=== PATIENT | female | born 1945 | race Caucasian/White ===

== ENCOUNTER 2017-04-21 22:10 | Observation (INO) ==
[2017-04-21 22:55] LABS: Basophils % 0.3 %; Eosinophils # 0.1 K/mcL (0.0-0.6); Eosinophils % 0.7 %; Hematocrit 38.2 % (35.3-44.9); Hemoglobin 13.3 g/dL (11.5-15.4); Immature Granulocytes % 0.5 % (0-4); Immature Platelets 3.1 % (1.1-6.1); Lymphocytes # 1.7 K/mcL (0.6-4.6); Lymphocytes % 16.1 %; Mean Corpuscular HGB Conc 34.8 g/dL (31.6-35.5); Mean Corpuscular Hemoglobin 33.8 pg (28.0-33.3); Mean Corpuscular Volume 97.2 fL (83.0-100.0); Monocytes # 0.3 K/mcL (0.0-1.3); Monocytes % 3.1 %; Neutrophils # 8.5 K/mcL (1.6-8.9); Platelet Count 193 K/mcL (140-400); Red Blood Count 3.93 M/mcL (3.82-4.97); Red Cell Distribution Width 14.8 % (11.5-14.5); Segmented Neutrophils % 79.3 %
[2017-04-21 23:01] LABS: Prothrombin Time 10.8 Seconds (9.4-12.1)
[2017-04-21 23:04] LABS: Activated Partial Thrombo Time 30.6 Seconds (26.0-36.0)
[2017-04-21 23:06] LABS: BUN/Creatinine Ratio 16 (6-26); Blood Urea Nitrogen 14 mg/dL (7-20); Carbon Dioxide 23 mEq/L (19-29); Chloride 110 mEq/L (98-109); Glucose 91 mg/dL (70-99); Osmolality,Calculated 294 (280-300); Potassium 3.7 mEq/L (3.5-4.5); Sodium 142 mEq/L (136-145); eGFR For African Americans > 60 (> 60); eGFR For Non-African Americans > 60 (> 60)
--- NOTE | 2017-04-21 23:20 | Emergency Department Note ---
Disposition Clinical Impression: Chest pain Qualifiers: Chest pain type: unspecified Qualified Code(s): R07.9 - Chest pain, unspecified Disposition: Admitted As Inpatient Condition: Undetermined Time of Disposition: 00:27 Chest Pain HPI - General Chief Complaint: ED Chest Pain Stated Complaint: chest pressure Time Seen by Provider: 04/21/17 22:19 Source: patient, EMS Mode of arrival: ambulatory Limitations: no limitations Vital Signs Reviewed: Yes Nursing Notes Reviewed: Yes - History of Present Illness HPI Narrative: 71-year-old female with extensive history of cardiac disease, hypertension, hyperlipidemia, diabetes, arrives [facility] emergency department with complaint of chest pressure that started over the course of the past 24-48 hours. The patient states she has associated dyspnea as well. The patient denies any radiation. The patient states that she her chest pain is starting to improve at this time. She denies any other complaints. She is mildly hypertensive with a systolic blood pressure in the 180s upon arrival to the room. Workup here in the emergency department so for dentures no acute findings. The patient does have a history of quadruple bypass back in 2000. Denies any other recent history of cardiac workup. The patient states she has been noncompliant with her medications recently. She denies any other complaints at this time. Pt complaint: chest pain Onset (ago): day(s) (1-2) Duration: intermittent Onset: during rest, during exertion Pain Location: substernal Severity: moderate Severity scale (1-10): 8 Quality: tightness Pain Radiation: none Improves with: nothing Worsens with: nothing Associated symptoms: Reports: dyspnea Treatments prior to arrival chest pain: none - Related Data On Oral Contraceptives: No Home Medications Medication Instructions Recorded Confirmed Atorvastatin [Lipitor] 40 mg PO HS 10/19/15 11/09/15 Clopidogrel [Plavix] 75 mg PO DAILY 10/19/15 11/09/15 DULoxetine [Cymbalta] 30 mg PO BID 10/19/15 11/09/15 Insulin Human Regular [HumuLIN R] 32 unit SQ BID 10/19/15 11/09/15 Lisinopril [Zestril] 5 mg PO DAILY 10/19/15 11/09/15 Metoprolol XL (24 HR) Succ [Toprol 50 mg PO DAILY 10/19/15 11/09/15 Xl] Oxycodone HCl [Oxaydo] 5 mg PO TID PRN 10/19/15 11/09/15 Ranitidine HCl [Zantac] 150 mg PO BID 10/19/15 11/09/15 diazePAM [Valium] 5 mg PO TID PRN 10/19/15 11/09/15 Cetirizine HCl [Zyrtec] 10 mg PO DAILY PRN 11/09/15 11/09/15 Levothyroxine [Synthroid] 25 mcg PO 0630 11/09/15 11/09/15 Previous Rx's Medication Instructions Recorded Ciprofloxacin/Dex *EAR* Susp 4 drop RIGHT EAR BID #1 bottle 05/06/16 [Ciprodex *EAR* Susp] Ondansetron HCl [Zofran] 4 mg PO Q4H PRN #7 tablet 05/06/16 Allergies Allergy/AdvReac Type Severity Reaction Status Date / Time acetaminophen [From Percocet] Allergy Rash Verified 11/09/15 07:08 codeine Allergy Rash Verified 11/09/15 06:42 fluticasone furoate Allergy Rash Verified 11/09/15 07:08 [From Breo Ellipta] morphine Allergy Difficulty Verified 11/09/15 06:42 Breathing Oxycodone [From Percocet] Allergy Rash Verified 11/09/15 07:08 vilanterol Allergy Rash Verified 11/09/15 07:08 [From Breo Ellipta] All systems ED: reviewed and negative except as stated. Constitutional: Denies: fever, chills, weakness, weight change Eyes: Denies: eye pain, eye discharge, vision change ENT ED: Denies: ear pain, throat pain, dental pain, hearing loss, epistaxis, congestion, dysphagia Cardiovascular: Reports: chest pain, dyspnea on exertion. Denies: palpitations , edema, syncope Respiratory: Reports: dyspnea. Denies: cough, wheezes, hemoptysis, stridor Gastrointestinal: Denies: abdominal pain, nausea, vomiting, diarrhea, constipation, hematemesis, melena, hematochezia Musculoskeletal: Denies: back pain, neck pain, arthralgia, myalgia Integumentary: Denies: rash, abrasion, lesions Neurological: Denies: headache, weakness, numbness, paresthesias, confusion, abnormal gait, vertigo Chest Pain PMH - Past Medical History Medical history: Reports: coronary artery disease, diabetes, fibromyalgia, GERD , hyperlipidemia, hypertension, myocardial infarction, other Surgical history: Reports: angioplasty/stent, cholecystectomy, coronary bypass ( CABG), GALLITO/BSO Psychiatric history: Reports: depression - Social History Smoking Status: Current every day smoker Alcohol use: Reports: none Drug use: Reports: none Physical Exam - General Limitations: no limitations General appearance: alert, in no apparent distress - Head Head exam: atraumatic, normocephalic, normal inspection - Eye Eye exam: Present: normal appearance, PERRL, EOMI - ENT ENT exam: normal exam, normal oropharynx, mucous membranes moist - Neck Neck exam: Present: normal inspection, full ROM, trachea midline - Chest Chest inspection: Present: normal inspection, symmetric chest wall rise - Respiratory Respiratory exam: Present: normal lung sounds bilaterally - Cardiovascular Cardiovascular exam: Present: regular rate, normal rhythm, normal heart sounds - Abdominal Exam Abdominal exam: Present: soft, Non-Tender. Absent: tenderness, distention, guarding, rebound, rigidity - Extremities Exam Extremities exam: Present: normal inspection, full ROM. Absent: tenderness, pedal edema - Neurological Exam Neurological exam: Present: alert, oriented X3 - Skin Skin exam: Present: warm, dry, intact, normal color Course Vital Signs Temperature 97.5 F L 04/21/17 22:11 Pulse Rate 53 04/21/17 22:11 Respiratory Rate 20 04/21/17 22:11 Blood Pressure 160/105 04/21/17 22:11 O2 Sat by Pulse Oximetry 100 04/21/17 22:11 Temperature 97.5 F L 04/21/17 22:11 Pulse Rate 58 04/22/17 00:00 Respiratory Rate 20 04/22/17 01:17 Blood Pressure 148/67 04/22/17 01:17 O2 Sat by Pulse Oximetry 99 04/22/17 00:00 Oxygen Delivery Oxygen Delivery Nasal Cannula Chest Pain - MDM Narrative Medical decision making narrative: Patient was noted to have mild lateral ST depression on EKG with negative workup otherwise. The patient's symptoms were relieved with nitroglycerin. We will admit the patient to the hospitalist, accepted by Dr. Figueroa. - Lab Data Lab results reviewed: Yes I reviewed the patient's lab results. Result diagrams: 04/21/17 22:41 04/21/17 22:41 Lab Results 04/21/17 04/21/17 04/21/17 Range/Units 22:41 22:41 22:41 WBC 10.8 (4.3-11.1) K/mcL RBC 3.93 (3.82-4.97) M/mcL Hgb 13.3 (11.5-15.4) g/dL Hct 38.2 (35.3-44.9) % MCV 97.2 (83.0-100.0) fL MCH 33.8 H (28.0-33.3) pg MCHC 34.8 (31.6-35.5) g/dL RDW 14.8 H (11.5-14.5) % Plt Count 193 (140-400) K/mcL MPV 10.0 (9.4-12.4) fL Immature Gran % 0.5 (0-4) % Seg Neutrophils % 79.3 % Lymphocytes % 16.1 % Monocytes % 3.1 % Eosinophils % 0.7 % Basophils % 0.3 % Neutrophils # 8.5 (1.6-8.9) K/mcL Lymphocytes # 1.7 (0.6-4.6) K/mcL Monocytes # 0.3 (0.0-1.3) K/mcL Eosinophils # 0.1 (0.0-0.6) K/mcL Basophils # 0.0 (0.0-0.2) K/mcL Immature Plt Fraction 3.1 (1.1-6.1) % PT 10.8 (9.4-12.1) Seconds INR 1.0 APTT 30.6 (26.0-36.0) Seconds Sodium (136-145) mEq/L Potassium (3.5-4.5) mEq/L Chloride (98-109) mEq/L Carbon Dioxide (19-29) mEq/L BUN (7-20) mg/dL Creatinine (0.57-1.11) mg/dL Est GFR ( Amer) (> 60) Est GFR (Non-Af Amer) (> 60) BUN/Creatinine Ratio (6-26) Glucose (70-99) mg/dL Calculated Osmolality (280-300) Calcium (8.6-10.8) mg/dL Troponin I (0-0.03) ng/mL B-Natriuretic Peptide 284 H (0-100) pg/mL 04/21/17 04/21/17 Range/Units 22:41 22:41 WBC (4.3-11.1) K/mcL RBC (3.82-4.97) M/mcL Hgb (11.5-15.4) g/dL Hct (35.3-44.9) % MCV (83.0-100.0) fL MCH (28.0-33.3) pg MCHC (31.6-35.5) g/dL RDW (11.5-14.5) % Plt Count (140-400) K/mcL MPV (9.4-12.4) fL Immature Gran % (0-4) % Seg Neutrophils % % Lymphocytes % % Monocytes % % Eosinophils % % Basophils % % Neutrophils # (1.6-8.9) K/mcL Lymphocytes # (0.6-4.6) K/mcL Monocytes # (0.0-1.3) K/mcL Eosinophils # (0.0-0.6) K/mcL Basophils # (0.0-0.2) K/mcL Immature Plt Fraction (1.1-6.1) % PT (9.4-12.1) Seconds INR APTT (26.0-36.0) Seconds Sodium 142 (136-145) mEq/L Potassium 3.7 (3.5-4.5) mEq/L Chloride 110 H (98-109) mEq/L Carbon Dioxide 23 (19-29) mEq/L BUN 14 (7-20) mg/dL Creatinine 0.90 (0.57-1.11) mg/dL Est GFR ( Amer) > 60 (> 60) Est GFR (Non-Af Amer) > 60 (> 60) BUN/Creatinine Ratio 16 (6-26) Glucose 91 (70-99) mg/dL Calculated Osmolality 294 (280-300) Calcium 10.0 (8.6-10.8) mg/dL Troponin I 0.00 (0-0.03) ng/mL B-Natriuretic Peptide (0-100) pg/mL - Radiology Data Radiology results reviewed: Yes I reviewed the patient's radiology results. - EKG Data EKG attestation: Yes I reviewed and interpreted this EKG. EKG results narrative: Heart rate 61 bpm. FL 132 ms. QTc 440 ms. Normal axis. Normal sinus rhythm. Numerous PVCs noted no ST elevation noted foot T waves noted in V1, V2, V3, V4. Nonspecific ST changes otherwise noted from EKG from 11/07/2015. Attestation Statement - Attestation Attestation: I, Raffy Jones MD, personally evaluated this patient and discussed their management with the resident physician. I reviewed the resident's note and agree with the documented findings, medical decision making, and plan of care. 71-year-old female presents to the emergency department with a complaint of substernal chest pain for 1 day prior to arrival. Some shortness of breath with the chest pain. No radiation of the pain. Also some diaphoresis. On examination patient is a well-developed well-nourished well-appearing elderly female in no acute distress. She is alert and oriented 3. There is no cyanosis or diaphoresis. Chest is nontender to palpation. Breath sounds are decreased but equal bilaterally with no rales or wheezes noted. Heart regular rate and rhythm. Abdomen is soft and nontender with normal bowel sounds. Labs reviewed. Troponin normal. Chest x-ray negative. EKG does show some mild ST depression in V4 and V5. There is also some anterolateral T-wave flattening. The hospitalist, Dr. Figueroa, was consulted and accepted admission of the patient.
[2017-04-21] MEDS: Nitroglycerin 0.4 MG TAB.SUBL SL PRN (23:53)
[2017-04-22] MEDS: Nitroglycerin 0.4 MG TAB.SUBL SL PRN (02:51)
[2017-04-22] MEDS ORDERED: Melatonin 3 MG TABLET PO PRN (03:01)
--- NOTE | 2017-04-22 04:35 | Internal Med History&Physical ---
<Lyndon Hill - Last Filed: 04/22/17 05:56> Date of Encounter: 04/22/17 Time of Encounter: 04:30 Assessment and Plan (1) Chest pain Current visit: Yes Status: Acute Patient presents the emergency department with descriptions of substernal, tightening chest pain that radiates to her jaw. She states this occurred when she was going to the bathroom this evening. She states the chest pain was improved with nitroglycerin. EKG was negative for ischemic changes and first troponin was negative. Given patient history of coronary artery disease, concern for ACS is present. Patient also describes having multiple stressors in her life currently with known history of depression, possible anxiety is contributing to chest pain. Patient has also stopped taking all her medications except insulin for the past 1+ months. Patient is allergic to morphine and codeine, such as pain control with nitroglycerin We will continue to trend troponins Obtain echocardiogram Supple oxygen Continue telemetry Continuous pulse oximetry NPO until ACS was ruled out Qualifiers: Chest pain type: unspecified Qualified Code(s): R07.9 - Chest pain, unspecified (2) Coronary artery disease Current visit: Yes Status: Acute Patient has known history of coronary artery disease having undergone triple bypass in 2000. She states that she has not had a roller man for some time due to her previous roller man leaving. She reports she has not had a catheterization or stress test since 2000. Patient reports she is not taking any medications, except her insulin, and one month. Plan as above Qualifiers: Coronary Disease-Associated Artery/Lesion type: bypass graft [place] vs. transplanted heart: [place] heart Associated angina: angina presence unspecified Qualified Code(s): I25.810 - Atherosclerosis of coronary artery bypass graft(s) without angina pectoris (3) Diabetes mellitus Current visit: Yes Status: Acute Patient has history of diabetes type 2 currently on 32 units she will 1 twice a day We will start before meals at bedtime glucose monitoring Start low-dose sliding scale insulin Qualifiers: Diabetes mellitus type: type 2 Diabetes mellitus complication status: with unspecified complications Diabetes mellitus skilled nursing insulin use: with skilled nursing use Qualified Code(s): E11.8 - Type 2 diabetes mellitus with unspecified complications; Z79.4 - MCC (current) use of insulin (4) DVT prophylaxis Current visit: Yes Status: Acute 5000 units heparin subcutaneous twice a day Internal Medicine - H&P: HPI Chief complaint: Chest Pain Admitted From: Home Plans for Post Hospital Care: Home History of present illness: Ms. Avendano is a 71 year old female with prior medical history of coronary artery disease (status post CABG in 2000) and diabetes who presents to [facility] because of the onset of chest pain. She states this occurred last night and was described as a tight feeling in the center of her chest. She reports as occurred while she was going to the bathroom and that the discomfort radiated into her neck. She reports mild diaphoresis and shortness of breath accompanying this incident. She states this feels like angina she has had in the past, though more severe. No anything that made the discomfort better was nitroglycerin. She denied nausea with this. His feet with her, she also admits that she has had a number of life stressors at the moment. 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 She also describes a family history significant for mental disorder, as she has depression herself. She has not taken any of her home medications, with the exception of her insulin, and the last 4-6 weeks. Past Med Surg Social Fam HX - Past Medical History Medical history: coronary artery disease, diabetes, fibromyalgia, GERD, hyperlipidemia, hypertension, malignancy, myocardial infarction Psychiatric history: depression - Past Surgical History Surgical History: angioplasty/stent, cholecystectomy, coronary bypass (CABG), LE stent (s), LE vascular intervention - Social History Smoking Status: Current every day smoker Packs per day: 1/2 Smokeless Tobacco Status: No Alcohol use: none Drug use: none Internal Medicine - H&P: Meds Atorvastatin [Lipitor] 40 mg PO HS 10/19/15 [History] Clopidogrel [Plavix] 75 mg PO DAILY 10/19/15 [History] DULoxetine [Cymbalta] 30 mg PO BID 10/19/15 [History] Insulin Human Regular [HumuLIN R] 32 unit SQ BID 10/19/15 [History] Lisinopril [Zestril] 5 mg PO DAILY 10/19/15 [History] Metoprolol XL (24 HR) Succ [Toprol Xl] 50 mg PO DAILY 10/19/15 [History] Oxycodone HCl [Oxaydo] 5 mg PO TID PRN 10/19/15 [History] Ranitidine HCl [Zantac] 150 mg PO BID 10/19/15 [History] diazePAM [Valium] 5 mg PO TID PRN 10/19/15 [History] Cetirizine HCl [Zyrtec] 10 mg PO DAILY PRN 11/09/15 [History] Levothyroxine [Synthroid] 25 mcg PO 0630 11/09/15 [History] Ciprofloxacin/Dex *EAR* Susp [Ciprodex *EAR* Susp] 4 drop RIGHT EAR BID #1 bottle 05/06/16 [Rx] Ondansetron HCl [Zofran] 4 mg PO Q4H PRN #7 tablet 05/06/16 [Rx] 3 Allergy/AdvReac Type Severity Reaction Status Date / Time acetaminophen [From Percocet] Allergy Rash Verified 11/09/15 07:08 codeine Allergy Rash Verified 11/09/15 06:42 fluticasone furoate Allergy Rash Verified 11/09/15 07:08 [From Breo Ellipta] morphine Allergy Difficulty Verified 11/09/15 06:42 Breathing Oxycodone [From Percocet] Allergy Rash Verified 11/09/15 07:08 vilanterol Allergy Rash Verified 11/09/15 07:08 [From Breo Ellipta] Review of systems: Gen: Denies fever, denies chills, denies weakness, denies fatigue, reports diaphoresis CV: Reports chest pain as per HPI, denies exertional chest pain or dyspnea, denies palpitations Resp: Reports shortness of breath, denies dyspnea, denies pleuritic pain, denies coughing GI: Denies nausea, denies vomiting, denies abdominal pain, denies constipation, denies diarrhea Neuro: Reports headache, denies confusion : Denies flank pain, denies dysuria, denies hematuria - Constitutional Vitals: Temp Pulse Resp BP Pulse Ox 97.7 F 48 16 183/110 100 04/22/17 02:07 04/22/17 02:07 04/22/17 02:07 04/22/17 02:07 04/22/17 02:07 Exam: General: Cooperative, pleasant, no acute distress, alert and oriented 3, answers questions appropriately HEENT: Normocephalic, atraumatic, neck supple, trachea midline Respiratory: No accessory muscle usage, clear to auscultation bilaterally, no wheezes/rhonchi/rales appreciated Cardiovascular: Regular rate and rhythm, S1 and S2 present, no murmurs/rubs/ gallops/clicks appreciated GI/abdominal: Nondistended, nontender, soft, normal bowel sounds, no peritoneal signs Extremities: No calf tenderness, no pedal edema appreciated, warm, lower extremity pulses palpable and symmetrical Neurological: Alert and oriented 3, no facial droop, no focal deficits Skin: Dry, intact, normal color Internal Med - H&P Results - Labs CBC & Chem 7: 04/21/17 22:41 04/21/17 22:41 <BriCarlos kent W - Last Filed: 04/22/17 06:46> Date of Encounter: 04/22/17 Internal Medicine - H&P: HPI History of present illness: Ms. Avendano is a 71 year old female All Systems PM: A 10-system review of systems was performed and is negative for pertinent findings except as documented above in the HPI. - Constitutional Vitals: Temp Pulse Resp BP Pulse Ox 97.9 F 53 16 148/66 98 04/22/17 05:01 04/22/17 05:01 04/22/17 05:01 04/22/17 05:01 04/22/17 05:01 Internal Med - H&P Results - Labs CBC & Chem 7: 04/22/17 04:17 04/22/17 04:17 Labs: Short CBC 04/22/17 Range/Units 04:17 WBC 10.5 (4.3-11.1) K/mcL Hgb 13.0 (11.5-15.4) g/dL Hct 37.1 (35.3-44.9) % Plt Count 182 (140-400) K/mcL Neutrophils # 6.8 (1.6-8.9) K/mcL BMP 04/22/17 04:17 Sodium 140 Potassium 3.8 Chloride 110 H Carbon Dioxide 24 BUN 14 Creatinine 0.82 Glucose 66 L Calcium 9.8 Cardiac Enzymes 04/22/17 Range/Units 04:17 Troponin I 0.02 (0-0.03) ng/mL - Attending Attestation Seen/examined/supervised MDM. 71W with CAD/CABG, PAD, IDDM, HTN self- discontinued all her medications except insulin due to fatigue and has presented with angina pectoris. EKG shows TWI in lateral leads, unchanged from prior. MPI in 11/07 was negative for perfusion defects, EF 70%. TTE in 2015 showed EF 65%, with mild diastolic dysfunction. --Serial troponin/EKG, r/o ACS. Unlikely to benefit from repeat stress test at this time. Resume aspirin, statin , beta gloria. Start ImDur. If symptoms improve, follow up with cardiology as OP.
[2017-04-22] MEDS ORDERED: Dextrose Gel 15 GM PO PRN ×2 (05:28)
[2017-04-22] MEDS ORDERED: D5% in Water 1,000 ML IVC PRN (05:28)
[2017-04-22] MEDS ORDERED: Ondansetron 4 MG/2 ML VIAL IVP PRN (05:28)
[2017-04-22] MEDS ORDERED: *HR* Dextrose 50 % in Water (Syg) 50 ML SYRINGE IVP PRN (05:28)
[2017-04-22] MEDS ORDERED: *HR* Morphine 2 MG/ML SYRINGE IVP PRN (05:28)
[2017-04-22] MEDS ORDERED: Naloxone 0.4 MG/ML INJ IVP PRN (05:28)
[2017-04-22] MEDS ORDERED: *HR* Heparin 5,000 UNIT/ML VIAL SQ SCH (06:00)
[2017-04-22 06:08] LABS: BUN/Creatinine Ratio 17 (6-26); Blood Urea Nitrogen 14 mg/dL (7-20); Calcium 9.8 mg/dL (8.6-10.8); Carbon Dioxide 24 mEq/L (19-29); Chloride 110 mEq/L (98-109); Chol/HDL Ratio 4.8 (0-4.9); Cholesterol 158 mg/dL (< 200); Glucose 66 mg/dL (70-99); HDL Cholesterol 33 mg/dL (40-59); LDL Cholesterol,Calculated 97 mg/dL (0-99); Magnesium 1.9 mg/dL (1.6-2.6); Osmolality,Calculated 289 (280-300); Phosphorous 3.1 mg/dL (2.3-4.7); Potassium 3.8 mEq/L (3.5-4.5); Sodium 140 mEq/L (136-145); Triglycerides 139 mg/dL (< 150); eGFR For African Americans > 60 (> 60); eGFR For Non-African Americans > 60 (> 60)
[2017-04-22 06:09] LABS: Basophils % 0.4 %; Eosinophils # 0.1 K/mcL (0.0-0.6); Eosinophils % 0.9 %; Hematocrit 37.1 % (35.3-44.9); Immature Granulocytes % 0.4 % (0-4); Lymphocytes # 3.3 K/mcL (0.6-4.6); Lymphocytes % 31.1 %; Mean Corpuscular Hemoglobin 33.9 pg (28.0-33.3); Mean Corpuscular Volume 96.6 fL (83.0-100.0); Mean Platelet Volume 10.3 fL (9.4-12.4); Monocytes # 0.3 K/mcL (0.0-1.3); Neutrophils # 6.8 K/mcL (1.6-8.9); Platelet Count 182 K/mcL (140-400); Red Blood Count 3.84 M/mcL (3.82-4.97); Red Cell Distribution Width 14.9 % (11.5-14.5); Segmented Neutrophils % 64.2 %
[2017-04-22] MEDS: Insulin LISPRO 300 UNITS/3 ML VIAL SQ SCH ×2 (06:25→11:45)
[2017-04-22 06:28] LABS: Thyroid Stimulating Hormone 4.518 mcIU/mL (0.350-4.840)
[2017-04-22] MEDS ORDERED: Pantoprazole 40 MG VIAL IVP SCH (06:30)
[2017-04-22] MEDS ORDERED: Nicotine 14 MG PATCH.TD24 TD SCH (09:00)
[2017-04-22] MEDS ORDERED: Isosorbide MONOnitrate (24 HR) 30 MG TAB.ER.24H PO SCH (09:00)
[2017-04-22 11:35] VITALS: BP 128/57
--- NOTE | 2017-04-22 12:56 | Discharge Summary ---
Date of Encounter: 04/22/17 Time of Encounter: 12:53 - Discharge Diagnosis (1) Chest pain Priority: Primary Status: Acute Qualifiers: Chest pain type: unspecified Qualified Code(s): R07.9 - Chest pain, unspecified (2) Coronary artery disease Priority: Secondary Status: Acute Qualifiers: Coronary Disease-Associated Artery/Lesion type: bypass graft [place] vs. 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 Isosorbide MONOnitrate (24 HR) [Imdur] 30 mg PO DAILY #30 Home Medications: Atorvastatin [Lipitor] 40 mg PO HS 10/19/15 [History] Clopidogrel [Plavix] 75 mg PO DAILY 10/19/15 [History] DULoxetine [Cymbalta] 30 mg PO BID 10/19/15 [History] Lisinopril [Zestril] 5 mg PO DAILY 10/19/15 [History] Metoprolol XL (24 HR) Succ [Toprol Xl] 50 mg PO DAILY 10/19/15 [History] Oxycodone HCl [Oxaydo] 5 mg PO TID PRN 10/19/15 [History] Ranitidine HCl [Zantac] 150 mg PO BID 10/19/15 [History] diazePAM [Valium] 5 mg PO TID PRN 10/19/15 [History] Aspirin [Lo-Dose Aspirin EC] 81 mg PO DAILY #30 tablet. 04/22/17 [Rx] Insulin Glargine,Hum.rec.anlog [Lantus Solostar] 15 unit SQ QAM 04/22/17 [ History] Insulin Glargine,Hum.rec.anlog [Lantus Solostar] 36 unit SQ QPM 04/22/17 [ History] Isosorbide MONOnitrate (24 HR) [Imdur] 30 mg PO DAILY #30 04/22/17 [Rx] Levothyroxine [Synthroid] 50 mcg PO DAILY 04/22/17 [History] Pregabalin [Lyrica] 50 mg PO BID 04/22/17 [History] Allergies/Adverse Reactions: 3 Allergy/AdvReac Type Severity Reaction Status Date / Time acetaminophen [From Percocet] Allergy Rash Verified 11/09/15 07:08 codeine Allergy Rash Verified 11/09/15 06:42 fluticasone furoate Allergy Rash Verified 11/09/15 07:08 [From Breo Ellipta] morphine Allergy Difficulty Verified 11/09/15 06:42 Breathing Oxycodone [From Percocet] Allergy Rash Verified 11/09/15 07:08 vilanterol Allergy Rash Verified 11/09/15 07:08 [From Breo Ellipta] Date of admission: 04/22/17 00:39 Primary care physician: Steve Becker MD Consults: 04/22/17 02:28 Consult to Pastoral Services [CONS] Routine Comment: Consult to Dye Automation Operator [CONS] Routine Reason for SW Consult: Patient has financial concerns about medical matters 04/22/17 05:32 Consult to Nurse Navigator [CONS] Routine Comment: - Patient Status Disposition: Home, Self-Care Condition: Good Overall status at discharge: patient is back to baseline - Discharge Instructions Follow Up With: Steve Becker MD [Primary Care Provider] - Additional Instructions: Follow-up with primary care physician within the next 7 days. Start Imdur, aspirin. Continue Plavix, metoprolol and Lipitor. Monitor glucose closely at home - Diet and Activity Activity: increase activity as tolerated Diet: diabetic diet Hospital course: Ms. Avendano is a 71 year old female with prior medical history of coronary artery disease (status post CABG in 2000 and stents), labial cancer with surgical remova, hypertension, hyperlipidemia, fibromyalgia, depression and diabetes insulin-dependent who presented to [facility] because of the onset of chest pain. She stated this occurred last night and was described as a tight feeling in the center of her chest. She reported mild diaphoresis and shortness of breath accompanying this incident. The only thing that made the discomfort better was nitroglycerin. She denied nausea with this. Complained a number of life stressors at the moment. 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 Did not take her medications for a while. Troponins were negative and EKG did not show ischemic changes. Glucose was 66 but improved with orange juice. Feels better and prefers to be discharged. - Time Spent with Patient Total time spent providing and/or coordinating discharge services: Greater than 30 minutes (36 min) - Constitutional Vitals: Temp Pulse Resp BP Pulse Ox 98.1 F 58 17 128/57 97 04/22/17 11:00 04/22/17 11:11 04/22/17 11:00 04/22/17 11:00 04/22/17 11:00 - Head Head exam: Present: atraumatic, normocephalic - Eye Eye exam: Present: PERRL, conjuntiva pink, sclera anicteric Pupils: Present: PERRL - Neck Neck exam general surgery: Present: supple, trachea midline. Absent: lymphadenopathy - Respiratory Respiratory exam: Present: CTAB. Absent: accessory muscle use, rales, rhonchi, wheezes - Cardiovascular Cardiovascular exam: Present: RRR, +S1, +S2. Absent: diastolic murmur, gallop, rubs, systolic murmur - GI/Abdominal GI/Abdominal exam: Present: normal bowel sounds, soft, no peritoneal signs. Absent: distended, tenderness - Extremities Exam Extremities exam: Present: warm, radial pulses palpable and symmetrical. Absent : calf tenderness, cyanotic, pedal edema - Neurological Exam Neurological exam: Present: CN II-XII intact, oriented X3, no focal deficits. Absent: pronater drift, facial droop, speech deficit - Skin Skin exam: Present: dry, intact
--- NOTE | 2017-04-22 16:34 | Electrocardiograph Report ---
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
--- NOTE | 2017-04-22 16:41 | Electrocardiograph Report ---
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
[2017-04-22] MEDS ORDERED: Insulin LISPRO 300 UNITS/3 ML VIAL SQ SCH (21:00)
== END 2017-04-22 14:16 | disposition home or self-care (01) ==
LOC: EMEROO 22:10 → 2NNU 22:10
PROVIDERS: ADMIT Internal Medicine; ATTEND Internal Medicine

== ENCOUNTER 2018-08-08 15:16 | Inpatient (IN) ==
[2018-08-08] MEDS ORDERED: *HR* FentaNYL (PF) 100 MCG/2 ML VIAL IVP ONE (15:48)
[2018-08-08] MEDS ORDERED: Aspirin 81 MG TAB.CHEW PO STA (15:49)
--- NOTE | 2018-08-08 16:00 | Emergency Department Note ---
Disposition Clinical Impression: Pulmonary embolus, right Disposition: Admitted As Inpatient Condition: Good Time of Disposition: 20:18 General Adult HPI - General Stated complaint: Chest Pain Time Seen by Provider: 08/08/18 15:17 Source: EMS Limitations: no limitations Nursing Notes Reviewed: Yes Vital Signs Reviewed: Yes - History of Present Illness HPI Narrative: 73-year-old female presents emergency department with concern for severe, sharp, right lower chest pain. Patient reports that it started yesterday evening. Patient states that she has never felt this way before. Does report history of smoking as well as peripheral artery disease. Patient denies any nausea, vomiting, fever, chills, does report cough, but states that this is chronic. Denies any sputum production or hemoptysis. Denies any history of blood clots. Denies any leg swelling. Pain Scale: 10 - Related Data Home Medications Medication Instructions Recorded Confirmed RX: Oxycodone HCl [Oxaydo] 5 mg PO BID PRN 10/19/15 08/09/18 RX: Betamethasone Dipropionate 1 appl TP BID 08/09/18 08/09/18 RX: Levothyroxine [Synthroid] 75 mcg PO 0630 08/09/18 08/09/18 RX: traZODone [TraZODone] 50 mg PO HS PRN 08/09/18 08/09/18 Previous Rx's Medication Instructions Recorded RX: Isosorbide MONOnitrate (24 HR) 30 mg PO DAILY #30 04/22/17 [Imdur] Apixaban [Eliquis] 5 mg PO AD 30 Days #74 tablet 08/09/18 Allergies Allergy/AdvReac Type Severity Reaction Status Date / Time codeine Allergy Rash Verified 08/09/18 14:06 fluticasone furoate Allergy Rash Verified 08/09/18 14:06 [From Breo Ellipta] morphine Allergy Difficulty Verified 08/09/18 14:06 Breathing Oxycodone [From Percocet] Allergy Rash Verified 08/09/18 14:06 vilanterol Allergy Rash Verified 08/09/18 14:06 [From Breo Ellipta] All systems ED: reviewed and negative except as stated. Review of Systems: As Per HPI Constitutional: Denies: fever Cardiovascular: Reports: chest pain. Denies: palpitations Respiratory: Reports: cough. Denies: dyspnea Gastrointestinal: Denies: abdominal pain, nausea, vomiting Genitourinary: Denies: urgency, dysuria, frequency Musculoskeletal: Denies: back pain Past Medical History - Past Medical History Medical history: Reports: coronary artery disease, diabetes, fibromyalgia, GERD, hyperlipidemia, hypertension, malignancy, myocardial infarction Surgical history: Reports: angioplasty/stent, cholecystectomy, coronary bypass (CABG), LE stent (s), LE vascular intervention Psychiatric history: Reports: depression - Social History Smoking Status: Current every day smoker Smokeless Tobacco Status: No Alcohol use: Reports: none Drug use: Reports: none Physical Exam - General Limitations: no limitations General appearance: alert, lethargic, other (Patient appears very uncomfortable, screaming in pain) - Head Head exam: normocephalic - Eye Eye exam: Present: EOMI - ENT ENT exam: mucous membranes moist - Neck Neck exam: Present: trachea midline - Chest Chest inspection: Present: symmetric chest wall rise, tenderness (Right-sided chest wall tenderness extremely tender to palpation) - Respiratory Respiratory exam: Present: normal lung sounds bilaterally. Absent: respiratory distress, accessory muscle use - Cardiovascular Cardiovascular exam: Present: regular rate, normal rhythm, normal heart sounds - Abdominal Exam Abdominal exam: Present: soft, Non-Tender. Absent: distention, guarding, rebound, rigidity Course Vital Signs Temperature 99.2 F 08/08/18 15:18 Pulse Rate 88 08/08/18 15:18 Respiratory Rate 22 08/08/18 15:18 Blood Pressure 143/118 08/08/18 15:18 O2 Sat by Pulse Oximetry 100 08/08/18 15:18 Temperature 98.2 F 08/10/18 07:00 Pulse Rate 65 08/10/18 07:00 Respiratory Rate 15 08/10/18 07:00 Blood Pressure 165/71 08/10/18 07:00 O2 Sat by Pulse Oximetry 93 08/10/18 07:00 Oxygen Delivery Oxygen Delivery Room Air Medical Decision Making - [facility] Narrative Medical decision making narrative: 71-year-old female presented to emergency department with concern for right-side d chest wall pain is reproducible upon palpation. Patient initially very comfortable in the room on physical exam. Patient was given pain medication. Chest x-ray did not reveal any evidence of acute cardiopulmonary abnormality. However, there was evidence of a small granuloma was calcified. We will obtain a d-dimer as patient's pain was pleuritic in nature and she was not PERC negative. D-dimer is elevated at 3805. We will obtain CT angiogram of the chest and revealed pulmonary embolus within the distal aspect of the right main pulmonary artery per radiology. Extended into the right middle lobe and right lower lobe branches as well. There was also evidence of right lower lobe and ri ght middle lobe pulmonary opacities which most likely represent pulmonary infarcts. Patient currently not hypoxic, tachycardic, hypotensive.No evidence of right heart strain at this time as patient's troponin was negative. Patient's creatinine here in the emergency department was 1.51. This is mildly elevated from previous. We admitted to hospitalist. Patient has required multiple doses of pain medication here in the emergency department she was very uncomfortable. I discussed results with patient bedside. They agreed with plan. Patient admitted the hospital. We have started heparin. Chest X-Ray 08/08/18 15:23 IMPRESSION: No acute findings. D/ / 08/08/2018 15:58:51 Vinayak Suazo MD / Shanda Marshall Interpreting Provider: Vinayak Suazo MD Chest CTA 08/08/18 16:37 IMPRESSION: Pulmonary embolus within the distal aspect of the right main pulmonary artery extending into multiple right middle lobe and right lower lobe branches. Peripherally based right middle lobe and right lower lobe pulmonary opacities are suspected to represent pulmonary infarcts. Critical results were called by Dr. Vinayak Suazo MD to Dr. Pierre Vazquez On 08/08/2018 at 18:37. D/ / 08/08/2018 18:40:32 Vinayak Sauzo MD / todd Interpreting Provider: Vinayak Suazo MD - Lab Data Result diagrams: 08/10/18 03:19 08/10/18 07:55 Lab Results 08/08/18 08/08/18 08/08/18 Range/Units 15:48 15:48 15:48 WBC 15.5 H (4.3-11.1) K/mcL RBC 4.35 (3.82-4.97) M/mcL Hgb 14.5 (11.5-15.4) g/dL Hct 42.3 (35.3-44.9) % MCV 97.2 (83.0-100.0) fL MCH 33.3 (28.0-33.3) pg MCHC 34.3 (31.6-35.5) g/dL RDW 15.4 H (11.5-14.5) % Plt Count 186 (140-400) K/mcL MPV 10.3 (9.4-12.4) fL Immature Gran % 0.8 (0-4) % Seg Neutrophils % 77.2 % Lymphocytes % 16.6 % Monocytes % 4.3 % Eosinophils % 0.8 % Basophils % 0.3 % Neutrophils # 12.0 H (1.6-8.9) K/mcL Lymphocytes # 2.6 (0.6-4.6) K/mcL Monocytes # 0.7 (0.0-1.3) K/mcL Eosinophils # 0.1 (0.0-0.6) K/mcL Basophils # 0.1 (0.0-0.2) K/mcL PT 12.0 (9.4-12.1) Seconds INR 1.1 APTT 30.0 (26.0-36.0) Seconds D-Dimer 3805 H (0-500) ng/mLFEU Heparin Anti-Xa, Unfract (0.30-0.70) IU/mL Sodium 140 (136-145) mEq/L Potassium 4.1 (3.5-5.1) mEq/L Chloride 105 (98-107) mEq/L Carbon Dioxide 25 (23-29) mEq/L BUN 28 H (8-23) mg/dL Creatinine 1.51 H (0.60-1.20) mg/dL Est GFR ( Amer) 41 L (> 60) Est GFR (Non-Af Amer) 34 L (> 60) BUN/Creatinine Ratio 19 (6-26) Glucose 114 H (70-105) mg/dL POC Glucose (70-99) mg/dL Calculated Osmolality 296 (280-300) Calcium 9.1 (8.6-10.3) mg/dL Troponin I < 0.03 (< 0.04) ng/mL B-Natriuretic Peptide (Less than 100) pg/mL 08/08/18 08/08/18 08/08/18 Range/Units 15:48 19:02 21:41 WBC (4.3-11.1) K/mcL RBC (3.82-4.97) M/mcL Hgb (11.5-15.4) g/dL Hct (35.3-44.9) % MCV (83.0-100.0) fL MCH (28.0-33.3) pg MCHC (31.6-35.5) g/dL RDW (11.5-14.5) % Plt Count (140-400) K/mcL MPV (9.4-12.4) fL Immature Gran % (0-4) % Seg Neutrophils % % Lymphocytes % % Monocytes % % Eosinophils % % Basophils % % Neutrophils # (1.6-8.9) K/mcL Lymphocytes # (0.6-4.6) K/mcL Monocytes # (0.0-1.3) K/mcL Eosinophils # (0.0-0.6) K/mcL Basophils # (0.0-0.2) K/mcL PT 12.4 H (9.4-12.1) Seconds INR 1.1 APTT (26.0-36.0) Seconds D-Dimer (0-500) ng/mLFEU Heparin Anti-Xa, Unfract 0.01 L (0.30-0.70) IU/mL Sodium (136-145) mEq/L Potassium (3.5-5.1) mEq/L Chloride (98-107) mEq/L Carbon Dioxide (23-29) mEq/L BUN (8-23) mg/dL Creatinine (0.60-1.20) mg/dL Est GFR ( Amer) (> 60) Est GFR (Non-Af Amer) (> 60) BUN/Creatinine Ratio (6-26) Glucose (70-105) mg/dL POC Glucose 89 (70-99) mg/dL Calculated Osmolality (280-300) Calcium (8.6-10.3) mg/dL Troponin I (< 0.04) ng/mL B-Natriuretic Peptide 82 (Less than 100) pg/mL 08/09/18 08/09/18 08/09/18 Range/Units 03:21 03:21 03:21 WBC 13.4 H (4.3-11.1) K/mcL RBC 4.05 (3.82-4.97) M/mcL Hgb 13.4 (11.5-15.4) g/dL Hct 39.8 (35.3-44.9) % MCV 98.3 (83.0-100.0) fL MCH 33.1 (28.0-33.3) pg MCHC 33.7 (31.6-35.5) g/dL RDW 15.3 H (11.5-14.5) % Plt Count 162 (140-400) K/mcL MPV 10.6 (9.4-12.4) fL Immature Gran % (0-4) % Seg Neutrophils % % Lymphocytes % % Monocytes % % Eosinophils % % Basophils % % Neutrophils # (1.6-8.9) K/mcL Lymphocytes # (0.6-4.6) K/mcL Monocytes # (0.0-1.3) K/mcL Eosinophils # (0.0-0.6) K/mcL Basophils # (0.0-0.2) K/mcL PT (9.4-12.1) Seconds INR APTT (26.0-36.0) Seconds D-Dimer (0-500) ng/mLFEU Heparin Anti-Xa, Unfract 0.42 (0.30-0.70) IU/mL Sodium 139 (136-145) mEq/L Potassium 4.6 (3.5-5.1) mEq/L Chloride 109 H (98-107) mEq/L Carbon Dioxide 24 (23-29) mEq/L BUN 23 (8-23) mg/dL Creatinine 1.29 H (0.60-1.20) mg/dL Est GFR ( Amer) 49 L (> 60) Est GFR (Non-Af Amer) 41 L (> 60) BUN/Creatinine Ratio 18 (6-26) Glucose 108 H (70-105) mg/dL POC Glucose (70-99) mg/dL Calculated Osmolality 292 (280-300) Calcium 8.4 L (8.6-10.3) mg/dL Troponin I (< 0.04) ng/mL B-Natriuretic Peptide (Less than 100) pg/mL 08/09/18 08/09/18 Range/Units 07:27 10:18 WBC (4.3-11.1) K/mcL RBC (3.82-4.97) M/mcL Hgb (11.5-15.4) g/dL Hct (35.3-44.9) % MCV (83.0-100.0) fL MCH (28.0-33.3) pg MCHC (31.6-35.5) g/dL RDW (11.5-14.5) % Plt Count (140-400) K/mcL MPV (9.4-12.4) fL Immature Gran % (0-4) % Seg Neutrophils % % Lymphocytes % % Monocytes % % Eosinophils % % Basophils % % Neutrophils # (1.6-8.9) K/mcL Lymphocytes # (0.6-4.6) K/mcL Monocytes # (0.0-1.3) K/mcL Eosinophils # (0.0-0.6) K/mcL Basophils # (0.0-0.2) K/mcL PT (9.4-12.1) Seconds INR APTT (26.0-36.0) Seconds D-Dimer (0-500) ng/mLFEU Heparin Anti-Xa, Unfract 0.28 L (0.30-0.70) IU/mL Sodium (136-145) mEq/L Potassium (3.5-5.1) mEq/L Chloride (98-107) mEq/L Carbon Dioxide (23-29) mEq/L BUN (8-23) mg/dL Creatinine (0.60-1.20) mg/dL Est GFR ( Amer) (> 60) Est GFR (Non-Af Amer) (> 60) BUN/Creatinine Ratio (6-26) Glucose (70-105) mg/dL POC Glucose 111 H (70-99) mg/dL Calculated Osmolality (280-300) Calcium (8.6-10.3) mg/dL Troponin I (< 0.04) ng/mL B-Natriuretic Peptide (Less than 100) pg/mL - EKG Data EKG #1 EKG attestation: Yes I reviewed and interpreted this EKG. EKG results narrative: 15:25 Heart rate 76 bpm, IL interval 130, QRS duration 92 ms, QT 391 ms, QTc 440 ms, normal axis. Sinus rhythm with ventricular 76 beats for minute. No evidence of any ischemic ST changes. Attestation Statement - Attestation Attestation: I, Mazin Fernandez, examined this patient and my medical decision-making was reviewed with the CORING MACHINE OPERATOR/PA/Advanced Practice Nurse/Resident Physician. I agree with the documented findings, disposition and treatment plan as described except to the extent set forth below. 73-year-old female presents emergency Department with concerns of acute onset right-sided chest pain. Patient states the pain started about 24 hours ago however it worsened this morning. She is currently writhing in the bed screami ng out in pain. She states pain is worse with deep breaths. EKG did not show evidence of STEMI or dysrhythmia. And was not significantly changed from the previous EKG. CTA of the chest showed PE which is consistent with the patient's symptoms. She will be started on heparin and admitted to the hospitalist for further care and evaluation. The high probability of a clinically significant, sudden or life threatening deterioration of the cardiovascular and respiratory system(s) required my full and direct attention, intervention and personal management. The aggregate critical care time was 35 minutes. This time is in addition to time spent performing reported procedures but includes the following: x Data Review and interpretation x Patient assessment and monitoring of vital signs x Documentation x Medication orders and management
[2018-08-08 16:03] LABS: Basophils # 0.1 K/mcL (0.0-0.2); Basophils % 0.3 %; Eosinophils # 0.1 K/mcL (0.0-0.6); Eosinophils % 0.8 %; Hematocrit 42.3 % (35.3-44.9); Hemoglobin 14.5 g/dL (11.5-15.4); Immature Granulocytes % 0.8 % (0-4); Lymphocytes # 2.6 K/mcL (0.6-4.6); Lymphocytes % 16.6 %; Mean Corpuscular HGB Conc 34.3 g/dL (31.6-35.5); Mean Corpuscular Hemoglobin 33.3 pg (28.0-33.3); Mean Corpuscular Volume 97.2 fL (83.0-100.0); Mean Platelet Volume 10.3 fL (9.4-12.4); Monocytes # 0.7 K/mcL (0.0-1.3); Monocytes % 4.3 %; Platelet Count 186 K/mcL (140-400); Red Blood Count 4.35 M/mcL (3.82-4.97); Red Cell Distribution Width 15.4 % (11.5-14.5); Segmented Neutrophils % 77.2 %
[2018-08-08 16:16] LABS: INR 1.1
[2018-08-08 16:26] LABS: BUN/Creatinine Ratio 19 (6-26); Blood Urea Nitrogen 28 mg/dL (8-23); Calcium 9.1 mg/dL (8.6-10.3); Carbon Dioxide 25 mEq/L (23-29); Chloride 105 mEq/L (98-107); Glucose 114 mg/dL (70-105); Osmolality,Calculated 296 (280-300); Potassium 4.1 mEq/L (3.5-5.1); Sodium 140 mEq/L (136-145); Troponin I < 0.03 ng/mL (< 0.04); eGFR For Non-African Americans 34 (> 60)
[2018-08-08] MEDS ORDERED: 0.9 % Sodium Chloride 1,000 ML IVC ONE (16:37)
[2018-08-08] MEDS ORDERED: Isovue-370 500 ML INFUS..BTL IV ONE (16:37)
[2018-08-08] MEDS ORDERED: *HR* HYDROmorphone (PF) 1 MG/ML SYRINGE IVP ONE (16:53)
[2018-08-08] MEDS ORDERED: *HR* Heparin 5,000 UNIT/ML VIAL IVP PRN ×2 (18:39)
[2018-08-08] MEDS ORDERED: *HR* Heparin 5,000 UNIT/ML VIAL IVP ONE (18:39)
[2018-08-08] MEDS ORDERED: Heparin 25,000 UNIT/500 ML D5W 25,000 UNIT/500 ML BAG IVC SCH (18:45)
[2018-08-08 19:34] LABS: Heparin anti-factor XA UFH 0.01 IU/mL (0.30-0.70); INR 1.1; Prothrombin Time 12.4 Seconds (9.4-12.1)
[2018-08-08] MEDS ORDERED: Ondansetron 4 MG/2 ML VIAL IVP ONE (22:45)
[2018-08-08] MEDS: OXYCODONE Oral CONC 10 MG/0.5 ML ORAL.SYG SL PRN (23:00)
[2018-08-08] MEDS ORDERED: Naloxone 0.4 MG/ML INJ IVP PRN (23:22)
[2018-08-08] MEDS ORDERED: D5% in Water 1,000 ML IVC PRN (23:23)
[2018-08-08] MEDS ORDERED: *HR* Dextrose 50 % in Water (Syg) 50 ML SYRINGE IVP PRN (23:23)
[2018-08-08] MEDS ORDERED: Dextrose Gel 15 GM/37.5 ML TUBE PO PRN ×2 (23:23)
--- NOTE | 2018-08-08 23:55 | Internal Med History&Physical ---
Date of Encounter: 08/08/18 Time of Encounter: 22:02 Internal Medicine - H&P: HPI Chief complaint: Right pulmonary embolism Admitted From: Emergency Dept Plans for Post Hospital Care: Home History of present illness: Ms. Avendano is a 73 year old female Patient presented to the emergency room with a 2 day history of sharp nonradiating right-sided chest pain and shortness of breath. She says that her symptoms gradually increased over the last few days and became severe enough that she came to the hospital for further evaluation. She has never had pain like this before. Emergency room patient's CBC showed a white count of 15.5, BMP showed creatinine of 1.51. D-dimer was elevated at 3805, troponin was undetectable and BMP was 82. CT angiogram showed pulmonary embolism within the distal aspect of the right main pulmonary artery extending into the multiple right middle lobe and right lower lobe branches. There was peripheral right middle lobe base and right lower lobe pulmonary opacities that were suspected to represent pulmonary infarcts. Chest x-ray showed no acute abnormalities. She was given 1 L of IV fluids, 324 mg aspirin a total of 50 g fentanyl as well as lidocaine patch. Heparin drip was started patient was sent to the medical floor for further evaluation. Upon my evaluation patient is still in intense pain, which comes and goes. She denies nausea, vomiting, fever and chills. She has never had a blood clot before but does have history of peripheral vascular disease. According to her medical chart she has multiple allergies to pain medication including morphine, oxycodone, codeine and acetaminophen. I discussed these with her and she denies anaphylaxis with these medicines but does get nauseated. She agreed to try oxycodone for her pain, and we will treat nausea with Zofran. Past Med Surg Social Fam HX - Past Medical History Medical history: coronary artery disease, diabetes, fibromyalgia, GERD, hyperlipidemia, hypertension, malignancy, myocardial infarction Psychiatric history: depression - Past Surgical History Surgical History: angioplasty/stent, cholecystectomy, coronary bypass (CABG), LE stent (s), LE vascular intervention Additional surgical history: NECK SURGERY. RIGHT EAR - Social History Smoking Status: Current every day smoker Smokeless Tobacco Status: No Alcohol use: none Drug use: none Internal Medicine - H&P: Meds Atorvastatin [Lipitor] 40 mg PO HS 10/19/15 [History] Clopidogrel [Plavix] 75 mg PO DAILY 10/19/15 [History] DULoxetine [Cymbalta] 30 mg PO BID 10/19/15 [History] Lisinopril [Zestril] 5 mg PO DAILY 10/19/15 [History] Metoprolol XL (24 HR) Succ [Toprol Xl] 50 mg PO DAILY 10/19/15 [History] Oxycodone HCl [Oxaydo] 5 mg PO TID PRN 10/19/15 [History] Ranitidine HCl [Zantac] 150 mg PO BID 10/19/15 [History] Aspirin [Lo-Dose Aspirin EC] 81 mg PO DAILY #30 tablet. 04/22/17 [Rx] Insulin Glargine,Hum.rec.anlog [Lantus Solostar] 15 unit SQ QAM 04/22/17 [History] Insulin Glargine,Hum.rec.anlog [Lantus Solostar] 36 unit SQ QPM 04/22/17 [History] Isosorbide MONOnitrate (24 HR) [Imdur] 30 mg PO DAILY #30 04/22/17 [Rx] Levothyroxine [Synthroid] 50 mcg PO DAILY 04/22/17 [History] Allergy/AdvReac Type Severity Reaction Status Date / Time acetaminophen [From Percocet] Allergy Rash Verified 11/09/15 07:08 codeine Allergy Rash Verified 11/09/15 06:42 fluticasone furoate Allergy Rash Verified 11/09/15 07:08 [From Breo Ellipta] morphine Allergy Difficulty Verified 11/09/15 06:42 Breathing Oxycodone [From Percocet] Allergy Rash Verified 11/09/15 07:08 vilanterol Allergy Rash Verified 11/09/15 07:08 [From Breo Ellipta] All Systems PM: A 10-system review of systems was performed and is negative for pertinent findings except as documented above in the HPI. - Constitutional Vitals: Temp Pulse Resp BP Pulse Ox 99.0 F 70 16 172/75 92 08/08/18 21:37 08/08/18 21:37 08/08/18 21:37 08/08/18 21:58 08/08/18 21:37 General appearance: Present: cooperative, mild distress, A&O X 3, pleasant, answers questions appropriately Exam: - - Head Head exam: Present: normal inspection - Eye Eye exam: Present: EOMI, normal appearance - Neck Neck exam general surgery: Absent: tenderness - Respiratory Respiratory exam: Present: chest wall tenderness, CTAB. Absent: rales, respiratory distress, rhonchi, wheezes Additional comments: Focal point of pain on the right side lower anterior chest - Cardiovascular Cardiovascular exam: Present: RRR. Absent: diastolic murmur, systolic murmur - GI/Abdominal GI/Abdominal exam: Present: normal bowel sounds, soft. Absent: tenderness - Extremities Exam Extremities exam: Present: warm, radial pulses palpable and symmetrical. Absent: calf tenderness, pedal edema, tenderness - Neurological Exam Neurological exam: Present: no focal deficits, strengths equal and symetr throughout. Absent: motor sensory deficit, facial droop, speech deficit - Skin Skin exam: Present: dry, normal color, warm Internal Med - H&P Results - Labs CBC & Chem 7: 08/08/18 15:48 08/08/18 15:48 Labs: Short CBC 08/08/18 Range/Units 15:48 WBC 15.5 H (4.3-11.1) K/mcL Hgb 14.5 (11.5-15.4) g/dL Hct 42.3 (35.3-44.9) % Plt Count 186 (140-400) K/mcL Neutrophils # 12.0 H (1.6-8.9) K/mcL BMP 08/08/18 15:48 Sodium 140 Potassium 4.1 Chloride 105 Carbon Dioxide 25 BUN 28 H Creatinine 1.51 H Glucose 114 H Calcium 9.1 Cardiac Enzymes 08/08/18 Range/Units 15:48 Troponin I < 0.03 (< 0.04) ng/mL - Impressions ITS Impressions Chest X-Ray 08/08/18 15:23 IMPRESSION: No acute findings. D/ / 08/08/2018 15:58:51 Vinayak Suazo MD / Shanda Marshall Interpreting Provider: Vinayak Suazo MD Chest CTA 08/08/18 16:37 IMPRESSION: Pulmonary embolus within the distal aspect of the right main pulmonary artery extending into multiple right middle lobe and right lower lobe branches. Peripherally based right middle lobe and right lower lobe pulmonary opacities are suspected to represent pulmonary infarcts. Critical results were called by Dr. Vinayak Suazo MD to Dr. Pierre Vazquez On 08/08/2018 at 18:37. D/ /08/2018 18:40:32 Vinayak Suazo MD / [email or web address] Interpreting Provider: Vinayak Suazo MD - Assessment and plan (1) Pulmonary embolus, right Current Visit: Yes Status: Acute Assessment and plan: Patient CTA showed right middle lobe and right lower lobe pulmonary embolisms with pulmonary infarctions in the peripheral bases. She was started on heparin drip in the emergency room. Continue heparin drip Oxycodone for pain control (2) Chest pain Current Visit: No Status: Acute Assessment and plan: Likely secondary to pulmonary embolism, patient's pain focal point located on the right side and is nonradiating. lidocaine patch given in the emergency room Oxycodone 10 mg every 6 hours as needed for pain Qualifiers: Chest pain type: unspecified Qualified Code(s): R07.9 - Chest pain, unspecified (3) Acute kidney injury Current Visit: Yes Status: Acute Assessment and plan: Elevated creatinine, patient has a history of chronic kidney disease stage III. Creatinine is elevated from baseline. She has been given 1 L of normal saline in the emergency room. Continue IV fluid hydration Recheck labs in the AM (4) Diabetes mellitus Current Visit: No Status: Acute Assessment and plan: Low dose sliding scale insulin as needed Monitor sugars with meals and at night Diabetic diet Qualifiers: Diabetes mellitus type: type 2 Diabetes mellitus longterm insulin use: with rn long term care use Diabetes mellitus complication status: with unspecified complications Qualified Code(s): E11.8 - Type 2 diabetes mellitus with unspecified complications; Z79.4 - care home (current) use of insulin (5) DVT prophylaxis Current Visit: No Status: Acute Assessment and plan: Heparin drip - Time Spent With Patient Total time spent is greater than 50% in coordination of care (as documented) at patient's floor/unit and/or counseling patient: Greater than 35 minutes
[2018-08-09] MEDS ORDERED: 0.9 % Sodium Chloride 1,000 ML IVC ONE (00:19)
[2018-08-09 03:34] LABS: Hematocrit 39.8 % (35.3-44.9); Hemoglobin 13.4 g/dL (11.5-15.4); Mean Corpuscular HGB Conc 33.7 g/dL (31.6-35.5); Mean Corpuscular Hemoglobin 33.1 pg (28.0-33.3); Mean Corpuscular Volume 98.3 fL (83.0-100.0); Mean Platelet Volume 10.6 fL (9.4-12.4); Platelet Count 162 K/mcL (140-400); Red Blood Count 4.05 M/mcL (3.82-4.97); Red Cell Distribution Width 15.3 % (11.5-14.5)
[2018-08-09 03:50] LABS: Calcium 8.4 mg/dL (8.6-10.3); Potassium 4.6 mEq/L (3.5-5.1)
[2018-08-09] MEDS: OXYCODONE Oral CONC 10 MG/0.5 ML ORAL.SYG SL PRN (05:30)
[2018-08-09] MEDS: Insulin LISPRO 300 UNITS/3 ML VIAL SQ SCH ×3 (08:49→17:52)
[2018-08-09] MEDS: Isosorbide MONOnitrate (24 HR) 30 MG TAB.ER.24H PO SCH (12:22)
[2018-08-09] MEDS: Apixaban 5 MG TABLET PO SCH ×2 (12:22→21:04)
[2018-08-09] MEDS ORDERED: Benzonatate 100 MG CAPSULE PO PRN (13:57)
--- NOTE | 2018-08-09 14:03 | Internal Med Progress Note ---
Hospitalist Progress Note - Encounter Date of Encounter: 08/09/18 Time of Encounter: 14:01 - Subjective Interval History: I have seen and evaluated the patient at bedside. patient reports significant pain in inspiration, which she rates 9/10, squeezing like. denies abdominal pain, nausea or vomiting. but reports feeling slightly lethargic. - Exam Vitals: Temp Pulse Resp BP Pulse Ox 98.9 F 77 18 143/100 73 08/09/18 12:11 08/09/18 12:11 08/09/18 12:11 08/09/18 12:11 08/09/18 12:11 Exam: Vitals: Reviewed. General: Alert and oriented x4. In mild to moderated distress due to pain with inspiration. Skin: Normal color, no rash, no lesions. HEENT: EOM, pupils equal, round and reactive. Cardiovascular: RRR, Normal S1 & S2, no rubs, murmurs or gallops. Lungs: CTA b/l, no wheezes or crackles. Abdomen: Soft, non-tender, no rigidity. Extremities: No deformity, no edema or tenderness, no joint swelling or clubbing. Neurological: Normal cognition and motor skills. Rest of the physical exam is non contributory - Assessment and Plan (1) Pulmonary embolus, right Current Visit: Yes Status: Acute Assessment and Plan: associated with significant pain with inspiration. incentive spirometry d/ oxyconde as patient has been getting lethargic with this medication will add [place] d/c heparin drip started on Apixaban 10mg/PO BID x7 days, follow by apixaban 5mg/PO BID patient educated about the importance of smoking cessation Limited TTE to evaluate for right heart strain duppler us of the lower extr r/o DVT (2) Leukocytosis Current Visit: Yes Status: Acute Assessment and Plan: most likely reactive due to pain secondary to Pulmonary infarct. (3) Acute kidney injury Current Visit: Yes Status: Acute Assessment and Plan: patient started on IV hydration. will re-assess kidney function in the morning. (4) Coronary artery disease Current Visit: No Status: Chronic Assessment and Plan: Hx of NSTEMI s/p HC and stents placement in [id number]. Will discontinue Clopidogrel, as patient has been started on Apixaban. and triple therapy would increase this patient bleeding risks. continue Aspirin 81mg/PO daily. (5) Hypothyroidism Current Visit: Yes Status: Chronic Assessment and Plan: Continue levothyroxine 75 mcg/PO daily, home dose. (6) Hypertension Current Visit: Yes Status: Chronic Assessment and Plan: BP sub-optimally controlled. Patient started on her home mediations. Isosorbide 30mg/PO daily. DVT Prophylaxis: Patient on an Oral anticoagulant. - Summary of Assessment and Plan Summary of Assessment and Plan: Patient to remain in the hospital due to severe chest pain. following a PE. Potential discharge tomorrow. - Time Spent with Patient Total time spent is greater than 50% in coordination of care (as documented) at patient's floor/unit and/or counseling patient: Greater than 35 minutes (40) Plan of Care Discussed with: patient (and the nurse.) Internal Medicine: Result - Labs CBC & Chem 7: 08/09/18 03:21 08/09/18 03:21 Labs: Short CBC 08/08/18 08/09/18 Range/Units 15:48 03:21 WBC 15.5 H 13.4 H (4.3-11.1) K/mcL Hgb 14.5 13.4 (11.5-15.4) g/dL Hct 42.3 39.8 (35.3-44.9) % Plt Count 186 162 (140-400) K/mcL Neutrophils # 12.0 H (1.6-8.9) K/mcL BMP 08/08/18 08/09/18 15:48 03:21 Sodium 140 139 Potassium 4.1 4.6 Chloride 105 109 H Carbon Dioxide 25 24 BUN 28 H 23 Creatinine 1.51 H 1.29 H Glucose 114 H 108 H Calcium 9.1 8.4 L Cardiac Enzymes 08/08/18 Range/Units 15:48 Troponin I < 0.03 (< 0.04) ng/mL - ABG Interpretation ABG results: PT/INR, D-dimer PT 12.4 Seconds (9.4-12.1) H 08/08/18 19:02 D-Dimer 3805 ng/mLFEU (0-500) H 08/08/18 15:48 - Impressions Impressions Chest X-Ray 08/08/18 15:23 IMPRESSION: No acute findings. D/ / 08/08/2018 15:58:51 Vinayak Suazo MD / Shanda Marshall Interpreting Provider: Vinayak Suazo MD Chest CTA 08/08/18 16:37 IMPRESSION: Pulmonary embolus within the distal aspect of the right main pulmonary artery extending into multiple right middle lobe and right lower lobe branches. Peripherally based right middle lobe and right lower lobe pulmonary opacities are suspected to represent pulmonary infarcts. Critical results were called by Dr. Vinayak Suazo MD to Dr. Pierre Vazquez On 08/08/2018 at 18:37. D/ / 08/08/2018 18:40:32 Vinayak Suazo MD / todd Interpreting Provider: Vinayak Suazo MD Consult Discharge Plan - Plan Prescriptions: Apixaban [Eliquis] 5 mg PO AD 30 Days #74 tablet __ (2) Leukocytosis Qualifiers: Leukocytosis type: unspecified Qualified Code(s): D72.829 - Elevated white blood cell count, unspecified (4) Coronary artery disease Qualifiers: Coronary Disease-Associated Artery/Lesion type: bypass graft [place] vs. transplanted heart: [place] heart Associated angina: angina presence unspecified Qualified Code(s): I25.810 - Atherosclerosis of coronary artery bypass graft(s) without angina pectoris (5) Hypothyroidism Qualifiers: Hypothyroidism type: unspecified Qualified Code(s): E03.9 - Hypothyroidism, unspecified (6) Hypertension Qualifiers: Hypertension type: unspecified Qualified Code(s): I10 - Essential (primary) hypertension
--- NOTE | 2018-08-09 15:30 | Electrocardiograph Report ---
[place] [id number] Test Date: 2018-08-08 Pat Name: Yasmine Avendano Department: [id number] Room: 2NE19 Gender: F Labels Molder: : 1945 Requested By: Pierre Vazquez Order Number: [id number] Reading MD: Johny Benites Measurements Intervals [place] Rate: 76 P: 73 CO: 130 QRS: 98 QRSD: 93 T: 90 QT: 391 QTc: 440 Interpretive Statements Sinus rhythm Right axis deviation Nonspecific T abnormalities, lateral leads Electronically Signed On 08-09-2018 15:28:44 EST by Johny Benites
[2018-08-09] MEDS ORDERED: Insulin LISPRO 300 UNITS/3 ML VIAL SQ SCH (21:00)
[2018-08-09] MEDS: *HR* HYDROcodone/Acet 5/325 mg TABLET PO PRN (21:22)
[2018-08-10 04:31] LABS: Basophils % 0.3 %; Eosinophils # 0.1 K/mcL (0.0-0.6); Eosinophils % 0.7 %; Hematocrit 32.3 % (35.3-44.9); Immature Granulocytes % 0.7 % (0-4); Lymphocytes # 2.2 K/mcL (0.6-4.6); Lymphocytes % 20.1 %; Mean Corpuscular Hemoglobin 33.5 pg (28.0-33.3); Mean Corpuscular Volume 95.8 fL (83.0-100.0); Mean Platelet Volume 10.8 fL (9.4-12.4); Monocytes # 0.6 K/mcL (0.0-1.3); Monocytes % 5.8 %; Neutrophils # 7.9 K/mcL (1.6-8.9); Platelet Count 155 K/mcL (140-400); Red Blood Count 3.37 M/mcL (3.82-4.97); Red Cell Distribution Width 14.7 % (11.5-14.5); Segmented Neutrophils % 72.4 %
[2018-08-10 04:45] LABS: Calcium 8.8 mg/dL (8.6-10.3); Magnesium 1.7 mg/dL (1.6-2.6); Phosphorous 2.9 mg/dL (2.7-4.5); Potassium 4.3 mEq/L (3.5-5.1)
[2018-08-10 04:48] LABS: Hemoglobin 11.3 g/dL (11.5-15.4)
[2018-08-10] MEDS: *HR* HYDROcodone/Acet 5/325 mg TABLET PO PRN ×2 (05:56→14:23)
[2018-08-10 07:28] VITALS: BP 165/71
[2018-08-10 08:38] LABS: Calcium 8.9 mg/dL (8.6-10.3); Potassium 4.5 mEq/L (3.5-5.1)
[2018-08-10] MEDS ORDERED: Aspirin Enteric Coated 81 MG Tablet PO SCH (09:00)
[2018-08-10] MEDS: Isosorbide MONOnitrate (24 HR) 30 MG TAB.ER.24H PO SCH (09:12)
[2018-08-10] MEDS: Apixaban 5 MG TABLET PO SCH (09:12)
[2018-08-10] MEDS: Insulin LISPRO 300 UNITS/3 ML VIAL SQ SCH ×2 (09:14→11:48)
--- NOTE | 2018-08-10 13:55 | Discharge Summary ---
- NOTES TO OUTPATIENT PROVIDER Notes to Outpatient Provider: none Date of Encounter: 08/10/18 Time of Encounter: 11:00 - Discharge Diagnosis (1) Coronary artery disease Priority: Primary Status: Chronic Qualifiers: Coronary Disease-Associated Artery/Lesion type: bypass graft [place] vs. transplanted heart: [place] heart Associated angina: angina presence unspecified Qualified Code(s): I25.810 - Atherosclerosis of coronary artery bypass graft(s) without angina pectoris (2) Pulmonary embolus, right Priority: Primary Status: Acute (3) Acute kidney injury Priority: Secondary Status: Acute (4) Leukocytosis Priority: Secondary Status: Acute Qualifiers: Leukocytosis type: unspecified Qualified Code(s): D72.829 - Elevated white blood cell count, unspecified (5) Hypothyroidism Priority: Secondary Status: Chronic Qualifiers: Hypothyroidism type: unspecified Qualified Code(s): E03.9 - Hypothyroidism, unspecified (6) Hypertension Priority: Secondary Status: Chronic Qualifiers: Hypertension type: unspecified Qualified Code(s): I10 - Essential (primary) hypertension Hospital course: Patient is a 73-year-old female with past medical history significant for coronary artery disease, diabetes, fibromyalgia, GERD, hyperlipidemia, hypertension, malignancy and myocardial infarction was admitted due to right- sided chest pain. Emergency room patient's CBC showed a white count of 15.5, BMP showed creatinine of 1.51. D-dimer was elevated at 3805, troponin was undetectable and BMP was 82. CT angiogram showed pulmonary embolism within the distal aspect of the right main pulmonary artery extending into the multiple right middle lobe and right lower lobe branches. Heparin drip was started patient was sent to the medical floor for further evaluation. During patients hospital stay echocardiogram did not show any right ventricular strain and patient was on room air. Patient was started on Eliquis and will be discharged to continue as an outpatient. - Time Spent with Patient Total time spent providing and/or coordinating discharge services: - Discharge Medications Home Medications: Oxycodone HCl [Oxaydo] 5 mg PO BID PRN 10/19/15 [History] Isosorbide MONOnitrate (24 HR) [Imdur] 30 mg PO DAILY #30 04/22/17 [Rx] Apixaban [Eliquis] 5 mg PO AD 30 Days #74 tablet 08/09/18 [Rx] Betamethasone Dipropionate 1 appl TP BID 08/09/18 [History] Levothyroxine [Synthroid] 75 mcg PO 0630 08/09/18 [History] traZODone [TraZODone] 50 mg PO HS PRN 08/09/18 [History] Allergies/Adverse Reactions: Allergy/AdvReac Type Severity Reaction Status Date / Time codeine Allergy Rash Verified 08/09/18 14:06 fluticasone furoate Allergy Rash Verified 08/09/18 14:06 [From Breo Ellipta] morphine Allergy Difficulty Verified 08/09/18 14:06 Breathing Oxycodone [From Percocet] Allergy Rash Verified 08/09/18 14:06 vilanterol Allergy Rash Verified 08/09/18 14:06 [From Breo Ellipta] Date of admission: 08/09/18 17:11 Primary care physician: Juaquin Lewis MD Consults: 08/08/18 22:57 Consult to Nutrition [CONS] Routine Comment: Consulting Provider: NUTRITION Reason for Dietary Consult: MST Score - Constitutional Vitals: Temp Pulse Resp BP Pulse Ox 98.2 F 65 15 165/71 93 08/10/18 07:00 08/10/18 07:00 08/10/18 07:00 08/10/18 07:00 08/10/18 07:00 General appearance: Present: cooperative, mild distress, A&O X 3, pleasant, answers questions appropriately Exam: Gen.: Nonacute distress, alert and oriented 3 Skin: Normal color - Patient Status Disposition: Home, Self-Care Condition: Good - Discharge Instructions Instructions: Apixaban (By mouth), Pulmonary Embolism (DC), Diabetes Mellitus Type 2 in Adults (DC) Follow Up With: Juaquin Lewis MD [Primary Care Provider] - 08/12/18 10:15 am (make sure you call the day before if you can not make this appointment) Forms: ED Satisfaction Letter
== END 2018-08-10 14:51 | disposition home or self-care (01) | DRG 176 ==
LOC: EMEROOARM 15:16 → 2NENU 15:16 → SUATTDRO 08-09 17:11
PROVIDERS: ADMIT Internal Medicine; ATTEND Hospitalist

== ENCOUNTER 2018-09-19 19:04 | Inpatient (IN) ==
--- NOTE | 2018-09-19 19:24 | Emergency Department Note ---
Disposition Clinical Impression: Left-sided weakness, Hyperglycemia Cerebrovascular accident Qualifiers: CVA mechanism: unspecified Qualified Code(s): I63.9 - Cerebral infarction, unspecified Disposition: Admitted As Inpatient Condition: Fair Referrals: NONE,PCP [Primary Care Provider] - Forms: ED Satisfaction Letter Time of Disposition: 20:11 Neuro HPI - General Chief Complaint: ED Neuro Symptoms/Deficit Stated Complaint: weakness Time Seen by Provider: 09/19/18 19:10 Source: patient, EMS Mode of arrival: EMS Limitations: no limitations Nursing Notes Reviewed: Yes Vital Signs Reviewed: Yes - History of Present Illness HPI Narrative: Patient arrives by EMS from home. She states she has experienced left upper extremity and left lower extremity weakness over the past 3 days. This is associated with dysarthria. She has had difficulty ambulating. She does complain of occasional pain to her distal left upper extremity. She is currently taking xarelto for a pulmonary embolus - Related Data Home Medications: Home Medications Medication Instructions Recorded Confirmed Oxycodone HCl [Oxaydo] 5 mg PO BID PRN 10/19/15 08/11/18 Betamethasone Dipropionate 1 appl TP BID PRN 08/09/18 08/11/18 Levothyroxine [Synthroid] 75 mcg PO 0630 08/09/18 08/11/18 traZODone [TraZODone] 50 mg PO HS PRN 08/09/18 08/11/18 Apixaban [Eliquis] 10 mg PO BID 08/11/18 08/11/18 Previous Rx's Medication Instructions Recorded Isosorbide MONOnitrate (24 HR) 30 mg PO DAILY #30 04/22/17 [Imdur] Allergies/Adverse Reactions: Allergies Allergy/AdvReac Type Severity Reaction Status Date / Time fluticasone furoate Allergy Rash Verified 08/09/18 14:06 [From Breo Ellipta] morphine Allergy Difficulty Verified 08/09/18 14:06 Breathing vilanterol Allergy Rash Verified 08/09/18 14:06 [From Breo Ellipta] All systems ED: reviewed and negative except as stated. Constitutional: Reports: weakness Eyes: Reports: as per HPI ENT ED: Reports: as per HPI Cardiovascular: Reports: as per HPI Respiratory: Reports: as per HPI Gastrointestinal: Reports: as per HPI Genitourinary: Reports: as per HPI Musculoskeletal: Reports: other (Left arm pain) Integumentary: Reports: as per HPI Neurological: Reports: weakness, abnormal gait, other (Dysarthria) Psychiatric: Reports: as per HPI Endocrine: Reports: as per HPI Hematological/Lymphatic: Reports: as per HPI Allergic/Immunologic: Reports: as per HPI Past Medical History - Past Medical History Medical history: Reports: coronary artery disease, diabetes, fibromyalgia, GERD, hyperlipidemia, hypertension, malignancy, myocardial infarction, pulmonary embolus Surgical history: Reports: angioplasty/stent, cholecystectomy, coronary bypass (CABG), orthopedic, other, LE stent (s), LE vascular intervention Psychiatric history: Reports: depression - Social History Smoking Status: Current every day smoker Smokeless Tobacco Status: No Alcohol use: Reports: none Drug use: Reports: none Physical Exam - General Limitations: no limitations General appearance: alert - Head Head exam: atraumatic - Eye Eye exam: Present: normal appearance, PERRL - ENT ENT exam: normal exam - Neck Neck exam: Present: normal inspection, full ROM - Chest Chest inspection: Present: normal inspection, symmetric chest wall rise - Respiratory Respiratory exam: Present: normal lung sounds bilaterally - Cardiovascular Cardiovascular exam: Present: regular rate, normal rhythm, normal heart sounds, systolic murmur - Abdominal Exam Abdominal exam: Present: soft, Non-Tender - Rectal Exam Rectal exam: Present: deferred - Extremities Exam Extremities exam: Present: normal inspection - Neurological Exam Neurological exam: Present: alert, oriented X3, CN II-XII intact, other (Mild dysarthria. Mild facial droop. 4/5 strength in the left upper and left lower extremity. 5 over 5 strength in the right upper and right lower extremity. No arm or leg drift. Gait and station not assessed) - Psychiatric Psychiatric exam: Present: normal affect, normal mood - Skin Skin exam: Present: warm, dry, intact Course Course Narrative: Patient presents with a three-day history of left-sided weakness. Concern for CVA. Workup initiated Vital Signs Temperature 98.2 F 09/19/18 19:11 Pulse Rate 73 09/19/18 19:11 Respiratory Rate 16 09/19/18 19:11 Blood Pressure 161/83 09/19/18 19:11 O2 Sat by Pulse Oximetry 95 09/19/18 19:11 Temperature 98.2 F 09/19/18 19:11 Pulse Rate 73 09/19/18 19:11 Respiratory Rate 16 09/19/18 19:11 Blood Pressure 161/83 09/19/18 19:11 O2 Sat by Pulse Oximetry 95 09/19/18 19:11 Oxygen Delivery Oxygen Delivery Room Air Neuro Symptoms/Deficit - Lab Data Lab results reviewed: Yes I reviewed the patient's lab results. Result diagrams: 09/19/18 19:13 09/19/18 19:13 Lab Results 09/19/18 09/19/18 09/19/18 Range/Units 19:13 19:13 19:13 WBC 10.7 (4.3-11.1) K/mcL RBC 4.52 (3.82-4.97) M/mcL Hgb 14.9 (11.5-15.4) g/dL Hct 42.5 (35.3-44.9) % MCV 94.0 (83.0-100.0) fL MCH 33.0 (28.0-33.3) pg MCHC 35.1 (31.6-35.5) g/dL RDW 13.4 (11.5-14.5) % Plt Count 190 (140-400) K/mcL MPV 10.3 (9.4-12.4) fL PT 12.0 (9.4-12.1) Seconds INR 1.1 Sodium 136 (136-145) mEq/L Potassium 4.4 (3.5-5.1) mEq/L Chloride 102 (98-107) mEq/L Carbon Dioxide 25 (23-29) mEq/L BUN 24 H (8-23) mg/dL Creatinine 1.29 H (0.60-1.20) mg/dL Est GFR ( Amer) 49 L (> 60) Est GFR (Non-Af Amer) 41 L (> 60) BUN/Creatinine Ratio 19 (6-26) Glucose 404 H (70-105) mg/dL Calculated Osmolality 303 H (280-300) Calcium 9.9 (8.6-10.3) mg/dL Total Bilirubin (0.3-1.0) mg/dL Direct Bilirubin (0.0-0.2) mg/dL Indirect Bilirubin (0.0-1.2) mg/dL AST (13-39) Units/L ALT (7-52) Units/L Alkaline Phosphatase (34-104) Units/L Troponin I < 0.03 (< 0.04) ng/mL Serum Total Protein (6.4-8.9) g/dL Albumin (3.5-5.7) g/dL Globulin (2.4-3.5) g/dL Albumin/Globulin Ratio (1.1-2.2) 09/19/18 Range/Units 19:14 WBC (4.3-11.1) K/mcL RBC (3.82-4.97) M/mcL Hgb (11.5-15.4) g/dL Hct (35.3-44.9) % MCV (83.0-100.0) fL MCH (28.0-33.3) pg MCHC (31.6-35.5) g/dL RDW (11.5-14.5) % Plt Count (140-400) K/mcL MPV (9.4-12.4) fL PT (9.4-12.1) Seconds INR Sodium (136-145) mEq/L Potassium (3.5-5.1) mEq/L Chloride (98-107) mEq/L Carbon Dioxide (23-29) mEq/L BUN (8-23) mg/dL Creatinine (0.60-1.20) mg/dL Est GFR ( Amer) (> 60) Est GFR (Non-Af Amer) (> 60) BUN/Creatinine Ratio (6-26) Glucose (70-105) mg/dL Calculated Osmolality (280-300) Calcium (8.6-10.3) mg/dL Total Bilirubin 0.6 (0.3-1.0) mg/dL Direct Bilirubin 0.1 (0.0-0.2) mg/dL Indirect Bilirubin 0.5 (0.0-1.2) mg/dL AST 12 L (13-39) Units/L ALT 7 (7-52) Units/L Alkaline Phosphatase 115 H (34-104) Units/L Troponin I (< 0.04) ng/mL Serum Total Protein 7.4 (6.4-8.9) g/dL Albumin 4.1 (3.5-5.7) g/dL Globulin 3.3 (2.4-3.5) g/dL Albumin/Globulin Ratio 1.2 (1.1-2.2) - Radiology Data Radiology results reviewed: Yes I reviewed the patient's radiology results. - EKG Data EKG attestation: Yes I reviewed and interpreted this EKG. EKG results narrative: Normal sinus rhythm rate 64 MI 131 QRS 97 QT/QTc 409/422. No acute ST segment elevation. Mild ST segment flattening in the lateral leads. Study compared to previous dated 08/11/18 TPA Checklist - LKW: 3-4.5 hrs Add. Warnings/Precautions Patient/family understanding: The patient/family members have been counseled and understood the risk, benefit, and alternatives of treatment.
[2018-09-19 19:42] LABS: Hematocrit 42.5 % (35.3-44.9); Hemoglobin 14.9 g/dL (11.5-15.4); Mean Corpuscular HGB Conc 35.1 g/dL (31.6-35.5); Mean Platelet Volume 10.3 fL (9.4-12.4); Platelet Count 190 K/mcL (140-400); Red Blood Count 4.52 M/mcL (3.82-4.97); Red Cell Distribution Width 13.4 % (11.5-14.5)
[2018-09-19 19:50] LABS: INR 1.1
[2018-09-19 20:02] LABS: Albumin 4.1 g/dL (3.5-5.7); Albumin/Globulin Ratio 1.2 (1.1-2.2); Bilirubin,Direct 0.1 mg/dL (0.0-0.2); Bilirubin,Indirect 0.5 mg/dL (0.0-1.2); Bilirubin,Total 0.6 mg/dL (0.3-1.0); Globulin 3.3 g/dL (2.4-3.5); Total Protein 7.4 g/dL (6.4-8.9)
[2018-09-19 20:04] LABS: BUN/Creatinine Ratio 19 (6-26); Blood Urea Nitrogen 24 mg/dL (8-23); Calcium 9.9 mg/dL (8.6-10.3); Carbon Dioxide 25 mEq/L (23-29); Chloride 102 mEq/L (98-107); Glucose 404 mg/dL (70-105); Osmolality,Calculated 303 (280-300); Potassium 4.4 mEq/L (3.5-5.1); Sodium 136 mEq/L (136-145); eGFR For Non-African Americans 41 (> 60)
[2018-09-19 20:05] LABS: Troponin I < 0.03 ng/mL (< 0.04)
[2018-09-20] MEDS ORDERED: Naloxone 0.4 MG/ML INJ IVP PRN (02:42)
[2018-09-20] MEDS ORDERED: *HR* Dextrose 50 % in Water (Syg) 50 ML SYRINGE IVP PRN (04:25)
[2018-09-20] MEDS ORDERED: D5% in Water 1,000 ML IVC PRN (04:25)
[2018-09-20] MEDS ORDERED: Dextrose Gel 15 GM/37.5 ML TUBE PO PRN ×2 (04:25)
[2018-09-20] MEDS ORDERED: 0.9 % Sodium Chloride 1,000 ML IVC ONE (04:31)
--- NOTE | 2018-09-20 04:39 | Internal Med History&Physical ---
Date of Encounter: 09/20/18 Time of Encounter: 03:33 Internal Medicine - H&P: HPI Chief complaint: Left-sided weakness, CVA Admitted From: Emergency Dept Plans for Post Hospital Care: Home History of present illness: Ms. Avendano is a 73 year old female Patient presented to the emergency room with left upper and left lower extremity weakness for 3 days. She also has some slurring of speech. She has had difficulty ambulating and has some numbness in her left upper extremity. She was diagnosed with a pulmonary embolus and her previous hospitalization, and has been on Eliquis. In the emergency room patient's CBC was within normal limits, BMP showed a creatinine of 1.29 and a glucose of 404. Patient's initial troponin less than 0.03. Patient's chest x-ray showed no evidence of acute cardiopulmonary process. Patient's head CT showed no acute intracranial abnormality but did show microvascular ischemic changes and remote lacunar stroke left caudate lobe and right and left basal ganglia is also remote stroke in the right midulla. Stroke alert was not called in the ER due to symptoms being greater than 3 days. EKG performed showed normal sinus rhythm with no ST segment elevations. Similar to previous EKGs. She was sent to the medical floor for further monitoring. Neurology was called from the ER, and agreed to consult on the patient in the morning. Upon my evaluation, patient states that she still feels left upper extremity and left lower extremity weakness compared to the right side. There is still some numbness in her distal left arm. She denies chest pain, abdominal pain, nausea, vomiting, diarrhea, constipation. She does note that her speech is slower than normal. She passed her bedside swallow study. Past Med Surg Social Fam HX - Past Medical History Medical history: coronary artery disease, diabetes, fibromyalgia, GERD, hyperlipidemia, hypertension, malignancy, myocardial infarction, pulmonary embolus Psychiatric history: depression - Past Surgical History Surgical History: angioplasty/stent, cholecystectomy, coronary bypass (CABG), orthopedic, other, LE stent (s), LE vascular intervention Additional surgical history: NECK SURGERY. RIGHT EAR - Social History Smoking Status: Current every day smoker Packs per day: 1 pk Smokeless Tobacco Status: No Alcohol use: none Drug use: none - Family History Mother Living Status: Hx Family Cardiac Disorders: Yes ( defect) Father Living Status: Hx Family Cardiac Disorders: Yes Hx Family Cancer: Yes (colon) Hx Family Endocrine Disorder: Yes (DM) Internal Medicine - H&P: Meds Oxycodone HCl [Oxaydo] 5 mg PO BID PRN 10/19/15 [History] Isosorbide MONOnitrate (24 HR) [Imdur] 30 mg PO DAILY #30 04/22/17 [Rx] Betamethasone Dipropionate 1 appl TP BID PRN 08/09/18 [History] Levothyroxine [Synthroid] 75 mcg PO 0630 08/09/18 [History] traZODone [TraZODone] 50 mg PO HS PRN 08/09/18 [History] Apixaban [Eliquis] 5 mg PO BID 08/11/18 [History] DULoxetine [Cymbalta] 30 mg PO BID 09/19/18 [History] Lisinopril [Zestril] 5 mg PO DAILY 09/19/18 [History] raNITIdine HCl [Ranitidine HCl] 150 mg PO BID 09/19/18 [History] Allergy/AdvReac Type Severity Reaction Status Date / Time fluticasone furoate Allergy Rash Verified 08/09/18 14:06 [From Breo Ellipta] morphine Allergy Difficulty Verified 08/09/18 14:06 Breathing vilanterol Allergy Rash Verified 08/09/18 14:06 [From Breo Ellipta] All Systems PM: A 10-system review of systems was performed and is negative for pertinent findings except as documented above in the HPI. - Constitutional Vitals: Temp Pulse Resp BP Pulse Ox 97.9 F 54 14 143/85 94 09/20/18 02:52 09/20/18 02:52 09/20/18 02:52 09/20/18 02:52 09/20/18 02:52 General appearance: Present: cooperative, pleasant, no acute distress, answers questions appropriately Exam: - - Head Head exam: Present: normal inspection - Eye Eye exam: Present: EOMI, normal appearance. Absent: nystagmus - Neck Neck exam general surgery: Present: full ROM. Absent: tenderness - Respiratory Respiratory exam: Present: CTAB. Absent: rales, respiratory distress, rhonchi, wheezes - Cardiovascular Cardiovascular exam: Present: RRR. Absent: diastolic murmur, systolic murmur - GI/Abdominal GI/Abdominal exam: Present: normal bowel sounds, soft. Absent: tenderness - Extremities Exam Extremities exam: Present: warm, radial pulses palpable and symmetrical. Absent: calf tenderness, pedal edema, tenderness - Neurological Exam Neurological exam: Present: alert, CN II-XII intact, motor sensory deficit, speech deficit. Absent: altered, no focal deficits, strengths equal and symetr throughout, pronater drift, facial droop Additional comments: Patient has slight slurring of speech Left upper extremity weaker than right upper extremity 4 out of 5 Left lower extremity also weaker than right, 4 out of 5 - Skin Skin exam: Present: dry, normal color, warm Internal Med - H&P Results - Labs CBC & Chem 7: 09/19/18 19:13 09/19/18 19:13 Labs: Short CBC 09/19/18 Range/Units 19:13 WBC 10.7 (4.3-11.1) K/mcL Hgb 14.9 (11.5-15.4) g/dL Hct 42.5 (35.3-44.9) % Plt Count 190 (140-400) K/mcL BMP 09/19/18 19:13 Sodium 136 Potassium 4.4 Chloride 102 Carbon Dioxide 25 BUN 24 H Creatinine 1.29 H Glucose 404 H Calcium 9.9 Cardiac Enzymes 09/19/18 Range/Units 19:13 Troponin I < 0.03 (< 0.04) ng/mL Liver Function 09/19/18 Range/Units 19:14 Total Bilirubin 0.6 (0.3-1.0) mg/dL Direct Bilirubin 0.1 (0.0-0.2) mg/dL AST 12 L (13-39) Units/L ALT 7 (7-52) Units/L Alkaline Phosphatase 115 H (34-104) Units/L Albumin 4.1 (3.5-5.7) g/dL - Impressions ITS Impressions Head CT 09/19/18 19:13 IMPRESSION: No acute intracranial abnormality. Microvascular ischemic changes and senescent changes. Remote lacunar stroke left caudate lobe and right and left basal ganglia. Remote stroke right medulla. Critical results were called by Dr. Patricio Maldonado to Gabe Rutherford on 09/19/2018 at 19:58. D/ / Patricio Maldonado / Patricio Maldonado Interpreting Provider: Patricio Maldonado Chest X-Ray 09/19/18 19:14 IMPRESSION: 1. No radiographic evidence of acute cardiopulmonary process. 2. Persistently enlarged but unchanged cardiomediastinal silhouette. D/ / Thomas Araiza MD / Thomas Araiza MD Interpreting Provider: Thomas Araiza MD - Assessment and plan (1) Cerebrovascular accident Current Visit: Yes Status: Acute Assessment and plan: Patient presents with three-day history of left-sided weakness and numbness in her left upper arm. CT head showed no acute intracranial abnormality. Neurology consult in the morning PT OT consult Carotid Dopplers Patient had echocardiogram performed in July of last year. 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 Management as above (3) Dysarthria Current Visit: Yes Status: Acute Assessment and plan: Patient does have some slurring of her speech, and her speech is slowed. Patient states this is not her baseline. Likely secondary to CVA. Speech therapy consult in the morning Patient did pass her swallow eval (4) Hyperglycemia Current Visit: Yes Status: Acute Assessment and plan: Blood sugars in the emergency room were 404. Patient is insulin-dependent diabetic. Hold home meds Monitor sugars with meals and at night Diabetic diet Low-dose insulin sliding scale as needed (5) Acute kidney injury Current Visit: No Status: Acute Assessment and plan: Patient's creatinine slightly elevated at 1.29 Continue IV fluid hydration Recheck labs in the morning (6) Diabetes mellitus Current Visit: No Status: Acute Assessment and plan: Diabetic diet Low-dose insulin signed scale as needed Monitor sugars with meals and at night Qualifiers: Diabetes mellitus type: type 2 Diabetes mellitus snf insulin use: with snf use Diabetes mellitus complication status: with unspecified complications Qualified Code(s): E11.8 - Type 2 diabetes mellitus with unspecified complications; Z79.4 - [facility] (current) use of insulin (7) Nicotine dependence Current Visit: Yes Status: Acute Assessment and plan: Nicotine patch Qualifiers: Nicotine product type: cigarettes Substance use status: uncomplicated Qualified Code(s): F17.210 - Nicotine dependence, cigarettes, uncomplicated (8) DVT prophylaxis Current Visit: No Status: Acute Assessment and plan: Patient apparently takes Eliquis at home. Continue Eliquis when medication list updated SCDs for now - Time Spent With Patient Total time spent is greater than 50% in coordination of care (as documented) at patient's floor/unit and/or counseling patient: Greater than 35 minutes
[2018-09-20 06:26] LABS: Hematocrit 40.7 % (35.3-44.9); Hemoglobin 14.4 g/dL (11.5-15.4); Mean Corpuscular HGB Conc 35.4 g/dL (31.6-35.5); Mean Corpuscular Hemoglobin 33.3 pg (28.0-33.3); Mean Corpuscular Volume 94.2 fL (83.0-100.0); Platelet Count 165 K/mcL (140-400); Red Blood Count 4.32 M/mcL (3.82-4.97); Red Cell Distribution Width 13.4 % (11.5-14.5)
[2018-09-20 06:45] LABS: BUN/Creatinine Ratio 19 (6-26); Blood Urea Nitrogen 21 mg/dL (8-23); Calcium 9.7 mg/dL (8.6-10.3); Carbon Dioxide 28 mEq/L (23-29); Chloride 105 mEq/L (98-107); Glucose 208 mg/dL (70-105); Osmolality,Calculated 295 (280-300); Sodium 138 mEq/L (136-145); eGFR For Non-African Americans 50 (> 60)
[2018-09-20] MEDS: Nicotine 21 MG PATCH.TD24 TD SCH (07:45)
[2018-09-20] MEDS: Insulin LISPRO 300 UNITS/3 ML VIAL SQ SCH ×3 (07:46→17:48)
[2018-09-20 09:07] LABS: Chol/HDL Ratio 6.6 (0-4.9); Cholesterol 184 mg/dL (< 200); HDL Cholesterol 28 mg/dL (40-59); LDL Cholesterol,Calculated 123 mg/dL (0-99); Triglycerides 164 mg/dL (< 150)
[2018-09-20 09:30] LABS: Estimated Average Glucose 214 mg/dl; Hemoglobin A1C 9.1 %
[2018-09-20] MEDS: Apixaban 5 MG TABLET PO SCH ×2 (09:47→22:51)
--- NOTE | 2018-09-20 10:15 | Internal Med Progress Note ---
<uHnter Smith S - Last Filed: 09/20/18 11:32> Hospitalist Progress Note - Encounter Date of Encounter: 09/20/18 Time of Encounter: 09:30 - Subjective Interval History: Ms. Avendano is a 73yo F w/ PMHx of CAD s/p CABG in 2000, Hx of PE on Xarelto, vagina cancer s/p surgery, PVD w/ stents and angioplasty who presented w/ L upper and lower extremity weakness and slurred speech. She states this has been going on for the past 3 days. She states she probably knew it was a stroke 3 days ago, but did not come in b/c she is "stubborn" and felt she could handle it herself. Head CT in the ED r/o any acute intracranial abnormalities but did show mircovascular ischemic changes involving remote lacunar stoke, L caudate, R and L basal ganglia. Today she states the weakness is improved but still there. She states her speech has improved significantly. She admits to TREVIZO, dizziness and SOB. She denies CP, abdominal pain, n/v, melena, hematochezia, dysuria or hematuria. She is an everyday smoker but has reduced her smoking from pack/day to half-pack a day. - Exam Vitals: Temp Pulse Resp BP Pulse Ox 97.8 F 53 19 169/61 94 09/20/18 07:34 09/20/18 07:34 09/20/18 07:34 09/20/18 07:34 09/20/18 07:34 Exam: General: Alert, non-distressed, stable Eyes: non-impressive pupillary dilation on R; EOMI Cardio: RRR, no murmurs Resp: CTAB, No wheezes or crackles Neuro exam: -patient was able to feel me touching her cheeks on both sides, but R side was blunted -Patient was not able to hear finger rub in R ear -no facial droop noted -Jaw strength = b/l -No uvula or tongue deviation -CN 11 intact -[employer] strength significantly reduced on L -UE weaker on L than R. -LE strength equal b/l Extremities: No calf tenderness or edema noted on exam - Assessment and Plan (1) Cerebrovascular accident Current Visit: Yes Status: Acute Assessment and Plan: -CT head showed no acute intracranial abnormality. -Neurology will see patient this morning -PT OT will see patient this morning -Carotid Dopplers -Patient had echocardiogram performed in 08/09/18 which showed EF of 55-60% -conveyor monitor -Continue [facility] neuro checks -Start 81mg ASA and 80mg Atorvastatin -MRI confirms acute Majo infarct (2) Left-sided weakness Current Visit: Yes Status: Acute Assessment and Plan: Likely secondary to CVA, prior to her symptom onset 3 days ago patient had normal symmetrical strength. Management as above (3) Dysarthria Current Visit: Yes Status: Acute Assessment and Plan: Etiology: 2/2 possible CVA -Patient reports that her slurred speech is improved -No dysarthria noted during conversation w/ patient this morning (4) Hyperglycemia Current Visit: Yes Status: Acute Assessment and Plan: Blood sugars in the emergency room were 404, most current BG levels are 208 -Hold home meds, patient is insulin dependent -Monitor sugars with meals and at night -Diabetic diet -Low-dose insulin sliding scale as needed (5) Acute kidney injury Current Visit: Yes Status: Resolved Assessment and Plan: -Patient's creatinine slightly elevated at 1.29, but most current result shows 1.08, resolved. -Recheck labs tomorrow morning (6) Diabetes mellitus Current Visit: No Status: Acute Assessment and Plan: -Diabetic diet -Low-dose insulin signed scale as needed -Monitor sugars with meals and at night (7) DVT prophylaxis Current Visit: No Status: Acute Assessment and Plan: Continue home Eliquis - Time Spent with Patient Total time spent is greater than 50% in coordination of care (as documented) at patient's floor/unit and/or counseling patient: Greater than 35 minutes Plan of Care Discussed with: patient Internal Medicine: Result - Labs CBC & Chem 7: 09/20/18 06:04 09/20/18 06:04 Labs: Short CBC 09/19/18 09/20/18 Range/Units 19:13 06:04 WBC 10.7 9.6 (4.3-11.1) K/mcL Hgb 14.9 14.4 (11.5-15.4) g/dL Hct 42.5 40.7 (35.3-44.9) % Plt Count 190 165 (140-400) K/mcL BMP 09/19/18 09/20/18 19:13 06:04 Sodium 136 138 Potassium 4.4 4.0 Chloride 102 105 Carbon Dioxide 25 28 BUN 24 H 21 Creatinine 1.29 H 1.08 Glucose 404 H 208 H Calcium 9.9 9.7 Cardiac Enzymes 09/19/18 Range/Units 19:13 Troponin I < 0.03 (< 0.04) ng/mL Liver Function 09/19/18 Range/Units 19:14 Total Bilirubin 0.6 (0.3-1.0) mg/dL Direct Bilirubin 0.1 (0.0-0.2) mg/dL AST 12 L (13-39) Units/L ALT 7 (7-52) Units/L Alkaline Phosphatase 115 H (34-104) Units/L Albumin 4.1 (3.5-5.7) g/dL - ABG Interpretation ABG results: PT/INR, D-dimer PT 12.0 Seconds (9.4-12.1) 09/19/18 19:13 - Impressions Impressions Head CT 09/19/18 19:13 IMPRESSION: No acute intracranial abnormality. Microvascular ischemic changes and senescent changes. Remote lacunar stroke left caudate lobe and right and left basal ganglia. Remote stroke right medulla. Critical results were called by Dr. Patricio Maldonado to Gabe Rutherford on 09/19/2018 at 19:58. D/ / Patricio Maldonado / Patricio Maldonado Interpreting Provider: Patricio Maldonado Chest X-Ray 09/19/18 19:14 IMPRESSION: 1. No radiographic evidence of acute cardiopulmonary process. 2. Persistently enlarged but unchanged cardiomediastinal silhouette. D/ / Thomas Araiza MD / Thomas Araiza MD Interpreting Provider: Thomas Araiza MD Consult Discharge Plan - Plan Referrals: NONE,PCP [Primary Care Provider] - <Kevin Connors - Last Filed: 09/20/18 12:47> Hospitalist Progress Note - Encounter Date of Encounter: 09/20/18 Time of Encounter: 09:35 - Exam Vitals: Temp Pulse Resp BP Pulse Ox 97.9 F 56 16 165/67 94 09/20/18 11:33 09/20/18 11:33 09/20/18 11:33 09/20/18 11:33 09/20/18 11:33 - Time Spent with Patient Total time spent is greater than 50% in coordination of care (as documented) at patient's floor/unit and/or counseling patient: Internal Medicine: Result - Labs CBC & Chem 7: 09/20/18 06:04 09/20/18 06:04 Labs: Short CBC 09/19/18 09/20/18 Range/Units 19:13 06:04 WBC 10.7 9.6 (4.3-11.1) K/mcL Hgb 14.9 14.4 (11.5-15.4) g/dL Hct 42.5 40.7 (35.3-44.9) % Plt Count 190 165 (140-400) K/mcL BMP 09/19/18 09/20/18 19:13 06:04 Sodium 136 138 Potassium 4.4 4.0 Chloride 102 105 Carbon Dioxide 25 28 BUN 24 H 21 Creatinine 1.29 H 1.08 Glucose 404 H 208 H Calcium 9.9 9.7 Cardiac Enzymes 09/19/18 Range/Units 19:13 Troponin I < 0.03 (< 0.04) ng/mL Liver Function 09/19/18 Range/Units 19:14 Total Bilirubin 0.6 (0.3-1.0) mg/dL Direct Bilirubin 0.1 (0.0-0.2) mg/dL AST 12 L (13-39) Units/L ALT 7 (7-52) Units/L Alkaline Phosphatase 115 H (34-104) Units/L Albumin 4.1 (3.5-5.7) g/dL - ABG Interpretation ABG results: PT/INR, D-dimer PT 12.0 Seconds (9.4-12.1) 09/19/18 19:13 - Impressions Impressions Head CT 09/19/18 19:13 IMPRESSION: No acute intracranial abnormality. Microvascular ischemic changes and senescent changes. Remote lacunar stroke left caudate lobe and right and left basal ganglia. Remote stroke right medulla. Critical results were called by Dr. Patricio Maldonado to Gabe Rutherford on 09/19/2018 at 19:58. D/ / Patricio Maldonado / Patricio Maldonado Interpreting Provider: Patricio Maldonado Chest X-Ray 09/19/18 19:14 IMPRESSION: 1. No radiographic evidence of acute cardiopulmonary process. 2. Persistently enlarged but unchanged cardiomediastinal silhouette. D/ / Thomas Araiza MD / Thomas Araiza MD Interpreting Provider: Thomas Araiza MD Brain MRI 09/20/18 04:29 IMPRESSION: 1. An acute infarct is seen within the right majo. No significant mass effect or midline shift. 2. Otherwise, no acute intracranial abnormality. 3. [id number] global parenchymal volume loss with chronic microvascular ischemic change. These results were sent to the [facility] on 09/20/2018 at 10:50 am to be communicated to the referring/covering health care provider/office. D/ / Crow Fernando MD / Crow Fernando MD Interpreting Provider: Crow Fernando MD - Attending Attestation The history, physical exam, and medical decision making was performed by the medical student either while I was physically present and actively involved or I personally re-performed the exam and medical decision making. I have verified the accuracy of the medical student's documentation with regards to the history, physical exam findings, and medical decision making on 09/20/18 Patient's speech has improved. On exam, she does has some weakness on the left side and right facial droop and numbness. MRI of the brain does show an acute right-sided pontine infarct. Continue aspirin, statin. PTOT consult. 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
--- NOTE | 2018-09-20 11:54 | Neurology - Consult Note ---
Addendum entered and electronically signed by Diego Delgadillo MD 09/20/18 20:02: Patient is seen and examined in the presence of Dr. Azam Marks and case discussed and MRI of brain images reviewed together and i agree with his history taking, physical exmination assessment and plan, outline below. In summery this is a 73 year old woman with multiple risk factors for CVA who developed right pontine infarct associated with dysarthria and left sided weakness. Symptoms improved wi thin 24 hours, especially her dysarthia, now only with mild hemiparesis to the left side and balance difficulty. -This is likely small vessel etiology secondary to HTN, hyperlipidemia and smoking. -Patient has been on Aspirin daily and just started eliquis one month ago therefore would keep her current antiplatelet therapy and anticoagulation therapy for now to avoid increased risk of bleeding. -If Eliquis is to be discontinued in the future then plavix will be added on to keep dual antiplatelet therapy if no contraindicatins exist at that time. -Aggressive risk factor modification mainly statin therapy and smoking cessation. -PT/OT/Speech evaluation -Other stroke work up already completed. Original Note: Date of Encounter: 09/20/18 Time of Encounter: 11:43 Assessment and Plan (1) Cerebrovascular accident Current Visit: Yes Status: Acute 73-year-old female with multiple risk factors for vascular disease presenting with acute onset speech changes, left-sided upper and lower extremity weakness, and sensory changes. Symptoms improving but patient has residual left lower extremity weakness. CT and MRI findings confirm acute infarct of the right majo. Patient was outside TPA window upon arrival. MRI reveals acute infarct of the right majo Echo report from 08/09/2018 reveals LVEF 55-60% with moderate LVH. Carotid Dopplers only indicative of nonstenotic plaque DRY MOLDER evaluated the patient and determined that speech and swallowing abilities were within functional limits PT/OT recommends inpatient rehabilitation/swing bed as patient requires assistance for ADLs and is high risk for falls. Patient reports taking daily aspirin consistently for several years, continue aspirin After her course of eliquis is finished, recommend addition of plavix to her aspirin for DAPT Recommend creating follow up appointment with Dr. Delgadillo, neurology, as outpatient in 2-3 weeks. Patient has multiple risk factors for strokes as she has hypertension, hyperlipidemia, insulin-dependent diabetes, and is currently a half pack per day smoker. Patient will require improved control of her hypertension as an outpatient. Her diabetes will have to be addressed as well as her A1c this admission was 9.1 (previous A1c 03/18/2018 was 7.4). Recommend initiation of high-dose statin as patient states that she is not on statin therapy at this time, but was on Lipitor previously Patient counseled on smoking cessation, she states that she is not interested in quitting smoking at this time, but is open to revisiting the subject or discussing alternatives to smoking in the future Qualifiers: CVA mechanism: unspecified Qualified Code(s): I63.9 - Cerebral infarction, unspecified History of Present Illness Chief complaint: Left-sided weakness HPI: Ms. Avendano is a 73 year old female with a history of IDDM, HLD, and HTN who presented to the hospital with left upper and lower extremity weakness and slurred speech. Patient states that her symptoms began Thursday morning, 09/17/2108, when she woke up and experienced difficulty ambulating as her left leg "felt heavy". this was also associated with LUE weakness, especially with moving her hand and gripping objects. She also reports speech difficulties at that time as well. Patient states that her symptoms have improved but her LLE weakness is still persistent. She was urged by her family members to be evaluated at the ED for her symptoms as she was requiring increased assistance at home and presented to [facility] on 09/19/2018. In the emergency department a CT head was performed which did reveal encephalomalacia in the pontine region which was new since her previous CT scan in 2016. Patient was subsequently admitted to the hospital for stroke workup. Today she declines any new neurological symptoms, her speech is improved and is at baseline, her left upper extremity weakness is improved as well but she still feels as though it is "heavier than the right ". Her left lower extremity is also weaker compared to the right. She also complains of "numbness" of the left upper extremity and left lower extremity. MRI performed today did reveal evidence for an acute right-sided pontine infarct. Patient states that she has been on an aspirin daily for several years. She has been on Plavix previously after a "heart procedure", but this was eventually discontinued. She is currently on Eliquis for a PE diagnosed in July 2018. Patient also has a history of hyperlipidemia and insulin-dependent diabetes mellitus. Patient states that her glucose control has been poor recently as she has had several readings over 300. She states that she was on Lipitor in the past, but is no longer taking the medication and cannot recall why. She states that she has been on several medications and has trouble affording and keeping up with all of her prescribed medications. She does admit to being a current smoker, smoking half pack per day. Past Med Surg Social Fam HX - Past Medical History Medical history: coronary artery disease, diabetes, fibromyalgia, GERD, hyperlipidemia, hypertension, malignancy, myocardial infarction, pulmonary embolus Psychiatric history: depression - Past Surgical History Surgical History: angioplasty/stent, cholecystectomy, coronary bypass (CABG), orthopedic, other, LE stent (s), LE vascular intervention Additional surgical history: NECK SURGERY. RIGHT EAR - Social History Smoking Status: Current every day smoker Packs per day: 1 pk Smokeless Tobacco Status: No Alcohol use: none Drug use: none - Family History Mother Living Status: Hx Family Cardiac Disorders: Yes ( defect) Father Living Status: Hx Family Cardiac Disorders: Yes Hx Family Cancer: Yes (colon) Hx Family Endocrine Disorder: Yes (DM) Medications and Allergies Oxycodone HCl [Oxaydo] 5 mg PO BID PRN 10/19/15 [History] Isosorbide MONOnitrate (24 HR) [Imdur] 30 mg PO DAILY #30 04/22/17 [Rx] Levothyroxine [Synthroid] 75 mcg PO 0630 08/09/18 [History] traZODone [TraZODone] 50 mg PO HS PRN 08/09/18 [History] Apixaban [Eliquis] 5 mg PO BID 08/11/18 [History] raNITIdine HCl [Ranitidine HCl] 150 mg PO BID 09/19/18 [History] Aspirin [Adult Aspirin Regimen] 81 mg PO DAILY 09/20/18 [History] Insulin NPH/REG 70/30 [HumuLIN 70/30 VIAL] 0 unit SQ BIDWM 09/20/18 [History] Melatonin [Melatin] 3 mg PO HS PRN 09/20/18 [History] Allergy/AdvReac Type Severity Reaction Status Date / Time fluticasone furoate Allergy Rash Verified 08/09/18 14:06 [From Breo Ellipta] morphine Allergy Difficulty Verified 08/09/18 14:06 Breathing vilanterol Allergy Rash Verified 08/09/18 14:06 [From Richa Serna] All Systems: The remainder of the systems were reviewed and are negative - Constitutional Constitutional ROS IM: weakness - Eyes Eyes: bilateral: blurred vision - Nose, Mouth, Throat Nose, mouth and throat: no headache(s) - Cardiovascular Cardiovascular ROS IM: no chest pain - Respiratory Respiratory IM: no dyspnea - Gastrointestinal Gastrointestinal: vomiting, no abdominal pain - Genitourinary Genitourinary ROS: dysuria - Musculoskeletal Musculoskeletal ROS IM: muscle weakness - Integumentary Integumentary IM: no unusual bruising - Neurological Neurological ROS: abnormal speech, numbness, sensory deficit, weakness, no confusion, no dizziness, no loss of vision, no memory loss, no paresthesias, no syncope, no tingling, no tremor(s) - Psychiatric Psychiatric general PM: anxiety - Endocrine Endocrine IM: cold intolerance - Hematologic/Lymphatic Hematologic/Lymphatic pediatric: no easy bleeding Physical Examination - Vital Signs Vital Signs: Initial Vital Signs Temp Pulse Resp BP Pulse Ox 98.2 F 73 16 161/83 95 09/19/18 19:11 09/19/18 19:11 09/19/18 19:11 09/19/18 19:11 09/19/18 19:11 - Exam Exam: Constitutional: Resting comfortably in bed, frail, alert and oriented 3, no acute distress HEENT: Head is atraumatic normocephalic, extraocular muscles intact, pupils are equal round react to light. No facial asymmetry, no dysarthria, no facial sensory changes. No oral pharyngeal lesions. Tongue protrudes midline. Normal SCM and trapezius muscle strength. Chest: Symmetrical chest wall rise, no tenderness palpation Cardiovascular: Regular rate and rhythm no murmurs Respiratory: Clear to condition bilaterally Abdomen: Soft nontender no guarding rigidity Neurological: -Cranial nerves: Extraoccular muscles intact, pupils are unreactive to light bilaterally. No facial asymmetry, no dysarthria, no facial sensory changes. To ngue protrudes midline. Normal SCM and trapezius muscle strength. -Upper extremities: Muscle strength is equal bilaterally and 5 out of 5 on biceps, triceps, and supervisor color paste mixing strength testing. There is decreased sensation to light touch along the left upper extremity. Slight pronator drift on the left. Finger to nose is abnormal on the left. Biceps reflexes are 1+ bilaterally, brachioradialis reflexes are 1+ bilaterally. -Lower extremities: Right lower extremity muscle strength is 5 out of 5. Left lower extremity muscle strength is 4+ out of 5. There is decreased sensation to light touch in the left lower extremity. Patellar reflexes 1+ bilaterally. No clonus. Babinski negative. Results - Laboratory Findings CBC and BMP: 09/20/18 06:04 09/20/18 06:04 Abnormal lab findings: Abnormal lab results Est GFR (Non-Af Amer) 50 (> 60) L 09/20/18 06:04 Glucose 208 mg/dL (70-105) H 09/20/18 06:04 POC Glucose 252 mg/dL (70-99) H 09/19/18 22:43 Hemoglobin A1c 9.1 % (-5.6) H 09/20/18 06:04 AST 12 Units/L (13-39) L 09/19/18 19:14 Alkaline Phosphatase 115 Units/L (34-104) H 09/19/18 19:14 Triglycerides 164 mg/dL (< 150) H 09/20/18 06:04 LDL Cholesterol, Calc 123 mg/dL (0-99) H 09/20/18 06:04 VLDL Cholesterol, Calc 33 mg/dL (< 31) H 09/20/18 06:04 HDL Cholesterol 28 mg/dL (40-59) L 09/20/18 06:04 Cholesterol/HDL Ratio 6.6 (0-4.9) H 09/20/18 06:04 Consult Discharge Plan - Plan Referrals: NONE,PCP [Primary Care Provider] -
[2018-09-20] MEDS: Aspirin Enteric Coated 81 MG Tablet PO SCH (11:59)
[2018-09-20] MEDS ORDERED: Insulin LISPRO 300 UNITS/3 ML VIAL SQ SCH (21:00)
[2018-09-21 05:44] LABS: BUN/Creatinine Ratio 26 (6-26); Blood Urea Nitrogen 27 mg/dL (8-23); Calcium 9.9 mg/dL (8.6-10.3); Carbon Dioxide 26 mEq/L (23-29); Chloride 107 mEq/L (98-107); Glucose 186 mg/dL (70-105); Osmolality,Calculated 296 (280-300); Potassium 4.2 mEq/L (3.5-5.1); Sodium 138 mEq/L (136-145); eGFR For Non-African Americans 52 (> 60)
--- NOTE | 2018-09-21 07:34 | Internal Med Progress Note ---
Addendum entered and electronically signed by Kevin Connors MD 09/21/18 16:05: Correction: Patient started on Imdur today. We will stop Norvasc. Assess response to Imdur. Addendum entered and electronically signed by Kevin Connors MD 09/21/18 13:47: The history, physical exam, and medical decision making was performed by the medical student either while I was physically present and actively involved or I personally re-performed the exam and medical decision making. I have verified the accuracy of the medical student's documentation with regards to the history, physical exam findings, and medical decision making on 09/21/18. General: Patient is alert, no acute distress, oriented x 3 ENT: Mucous membranes moist Respiratory: Good respiratory effort. Normal breath sounds. No wheezing or crackles. Cardiovascular: Regular rate and rhythm. s1 and s2 normal No clicks, rubs, gallops, or murmurs. No pedal edema Abdomen: Abdomen is soft, nontender. Bowel sounds are present Musculoskeletal: Spontaneously moving all extremities Skin: warm, dry, intact. Neuro: Alert oriented x 3 in mild right-sided facial droop. Strength normal in both upper and lower extremities. Speech improved Original Note: <Hunter Smith S - Last Filed: 09/21/18 08:35> Hospitalist Progress Note - Encounter Date of Encounter: 09/21/18 Time of Encounter: 08:30 - Subjective Interval History: Ms. Avendano is resting comfortably in her bed this morning. There were no overnight events. Today she states the weakness is improved significantly. She states she has some minor issues with gait, but can ambulate w/ a walker. She states her speech has improved significantly. Patient asked why this occurred, and time was taken to educate patient on the importance of quitting smoking and controlling her blood pressure. She was also informed that after Pre-authorization she will be going for rehab to regain her baseline strength. Patient agrees w/ the plan. She admits to TREVIZO, dizziness and SOB. She denies CP, abdominal pain, n/v, melena, hematochezia, dysuria or hematuria. She is an everyday smoker but has reduced her smoking from pack/day to half-pack a day. - Exam Vitals: Temp Pulse Resp BP Pulse Ox 98.0 F 52 16 162/83 94 09/21/18 06:45 09/21/18 06:45 09/21/18 06:45 09/21/18 06:45 09/20/18 17:05 Exam: General: Alert, non-distressed, stable Eyes: non-impressive pupillary dilation; EOMI Cardio: RRR, no murmurs Resp: CTAB, No wheezes or crackles Neuro exam: -patient was able to feel me touching her cheeks on both sides -patient was able to hear finger rub on both sides -no facial droop noted -Jaw strength = b/l -No uvula or tongue deviation -CN 11 intact -Mate Chief strength is markedly improved and equal b/l -UE strength equal b/l -LE strength equal b/l Extremities: No calf tenderness or edema noted on exam - Assessment and Plan (1) Cerebrovascular accident Current Visit: Yes Status: Acute Assessment and Plan: -CT head showed no acute intracranial abnormality. -Neurology recommends rehab to help strength to improve residual stroke effects -PT OT will see patient this morning -Carotid Dopplers reveal b/l carotids that have non-stenotic plaque -Patient had echocardiogram performed in 08/09/18 which showed EF of 55-60% -monitor car operator -Continue NIH neuro checks -Start 81mg ASA and 80mg Atorvastatin -MRI confirms acute Majo infarct (2) Left-sided weakness Current Visit: Yes Status: Acute Assessment and Plan: Likely secondary to CVA, prior to her symptom onset 3 days ago patient had normal symmetrical strength. Management as above (3) Dysarthria Current Visit: Yes Status: Acute Assessment and Plan: Etiology: 2/2 possible CVA -Patient reports that her slurred speech is improved -No dysarthria noted during conversation w/ patient this morning (4) Hyperglycemia Current Visit: Yes Status: Acute Assessment and Plan: Blood sugars in the emergency room were 404, yesterday they were 208, most current BG levels are 186 -Hold home meds, patient is insulin dependent -Monitor sugars with meals and at night -Diabetic diet -Low-dose insulin sliding scale as needed (5) Acute kidney injury Current Visit: Yes Status: Resolved Assessment and Plan: -Patient's creatinine slightly elevated at 1.29, but repeat value was 1.08 -AM labs today reveals a value of 1.05 -Appropriate to stop labs (6) Diabetes mellitus Current Visit: No Status: Acute Assessment and Plan: -Diabetic diet -Low-dose insulin signed scale as needed -Monitor sugars with meals and at night (7) DVT prophylaxis Current Visit: No Status: Acute Assessment and Plan: Continue home Eliquis - Time Spent with Patient Total time spent is greater than 50% in coordination of care (as documented) at patient's floor/unit and/or counseling patient: Greater than 35 minutes Plan of Care Discussed with: patient Internal Medicine: Result - Labs CBC & Chem 7: 09/20/18 06:04 09/21/18 05:14 Labs: BMP 09/20/18 09/21/18 06:04 05:14 Sodium 138 138 Potassium 4.0 4.2 Chloride 105 107 Carbon Dioxide 28 26 BUN 21 27 H Creatinine 1.08 1.05 Glucose 208 H 186 H Calcium 9.7 9.9 - ABG Interpretation ABG results: PT/INR, D-dimer PT 12.0 Seconds (9.4-12.1) 09/19/18 19:13 - Impressions Impressions Brain MRI 09/20/18 04:29 IMPRESSION: 1. An acute infarct is seen within the right majo. No significant mass effect or midline shift. 2. Otherwise, no acute intracranial abnormality. 3. [id number] global parenchymal volume loss with chronic microvascular ischemic change. These results were sent to the [facility] ([facility] on 09/20/2018 at 10:50 am to be communicated to the referring/covering health care provider/office. D/ / Crow Fernando MD / Crow Fernando MD Interpreting Provider: Crow Fernando MD Consult Discharge Plan - Plan Referrals: NONE,PCP [Primary Care Provider] - <Kevin Connors - Last Filed: 09/21/18 13:47> Hospitalist Progress Note - Encounter Date of Encounter: 09/21/18 Time of Encounter: 10:15 - Subjective Interval History: Patient is feeling much better today. She denies any facial numbness. Strength is improving in her left upper and lower extremity. Her speech is back to baseline. - Exam Vitals: Temp Pulse Resp BP Pulse Ox 97.6 F 67 16 169/82 95 09/21/18 11:16 09/21/18 11:16 09/21/18 11:16 09/21/18 11:16 09/21/18 11:16 - Assessment and Plan (1) Cerebrovascular accident Current Visit: Yes Status: Acute Assessment and Plan: Acute right pontine infarct. Likely due to small vessel disease. Continue aspirin, statin. Neurology input appreciated. PTOT. Recommend placement to swing bed. decontamination worker working on this. (2) Acute kidney injury Current Visit: Yes Status: Resolved Assessment and Plan: Has resolved. (3) Coronary artery disease Current Visit: No Status: Chronic Assessment and Plan: no chest pain. Continue aspirin, statin. (4) Diabetes mellitus Current Visit: Yes Status: Acute Assessment and Plan: Blood sugars remain elevated but improved overall. We will increase long-acting insulin dosage. (5) Hypertension Current Visit: Yes Status: Chronic Assessment and Plan: Blood pressure remains elevated. Start amlodipine. DVT Prophylaxis: Patient is on Eliquis. - Time Spent with Patient Total time spent is greater than 50% in coordination of care (as documented) at patient's floor/unit and/or counseling patient: Internal Medicine: Result - Labs CBC & Chem 7: 09/20/18 06:04 09/21/18 05:14 Labs: BMP 09/21/18 05:14 Sodium 138 Potassium 4.2 Chloride 107 Carbon Dioxide 26 BUN 27 H Creatinine 1.05 Glucose 186 H Calcium 9.9 - ABG Interpretation ABG results: PT/INR, D-dimer PT 12.0 Seconds (9.4-12.1) 09/19/18 19:13 <Kevin Connors - Last Filed: 09/21/18 13:47> (1) Cerebrovascular accident Qualifiers: CVA mechanism: unspecified Qualified Code(s): I63.9 - Cerebral infarction, unspecified (3) Coronary artery disease Qualifiers: Coronary Disease-Associated Artery/Lesion type: bypass graft [place] vs. 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
[2018-09-21] MEDS: Apixaban 5 MG TABLET PO SCH ×2 (08:22→20:25)
[2018-09-21] MEDS: Nicotine 21 MG PATCH.TD24 TD SCH (08:22)
[2018-09-21] MEDS: Aspirin Enteric Coated 81 MG Tablet PO SCH (08:22)
[2018-09-21] MEDS: Insulin LISPRO 300 UNITS/3 ML VIAL SQ SCH ×3 (08:22→17:02)
--- NOTE | 2018-09-21 08:37 | Neurology Progress Note ---
Addendum entered and electronically signed by Diego Delgadillo MD 09/21/18 17:08: Patient seen and examined and i agree with Dr. Josh Marks's assessment and plan outlined below She is doing better today and left sided weakness seems improving steadily although she still has mild left pronator drift and loss of dexterity. -Right pontine infarct. -aspriing 81mg daily -eliquis 5mg bid for PE but would also serve as stroke preventative therapy -PT/OT as suggested by PT -Follow up in neuro in few weeks after discharge. Original Note: Date of Encounter: 09/21/18 Time of Encounter: 08:34 Assessment and Plan (1) Cerebrovascular accident Current Visit: Yes Status: Acute 73-year-old female who was admitted to the hospital after acute onset dysarthria and left-sided weakness following a infarct of the right pontine region. Her symptoms have improved but she has residual left-sided weakness present. -Multiple risk factors for stroke, patient was counseled on importance of improved care for her hypertension, diabetes, and hyperlipidemia. Also counseled on smoking cessation. -Patient is currently on aspirin and Eliquis, she had been taking her Eliquis once daily and was instructed to increase that to the prescribed dose of 5 mg twice a day. -Upon completion of Eliquis patient will require the addition of Plavix along with her aspirin for dual antiplatelet therapy. Do not recommend addition of Plavix at this time as patient will be high risk for bleeds. -Arrange for follow-up with neurology in 2-3 weeks. Qualifiers: CVA mechanism: unspecified Qualified Code(s): I63.9 - Cerebral infarction, unspecified Subjective Principal diagnosis: CVA Interval history: Patient seen and examined at bedside this morning. Denies any new complaints. States that she feels subjectively better and I will stronger than the previous day. No new acute neurological deficits. Objective - Constitutional Vitals: Temp Pulse Resp BP Pulse Ox 97.7 F 54 16 162/83 94 09/21/18 08:12 09/21/18 08:12 09/21/18 08:12 09/21/18 08:12 09/20/18 17:05 Exam: Constitutional: Resting comfortably in bed, frail, alert and oriented 3, no acute distress HEENT: Head is atraumatic normocephalic, extraocular muscles intact, pupils are equal round react to light. No facial asymmetry, no dysarthria, no facial sensory changes. No oral pharyngeal lesions. Tongue protrudes midline. Normal SCM and trapezius muscle strength. Chest: Symmetrical chest wall rise, no tenderness palpation Cardiovascular: Regular rate and rhythm no murmurs Respiratory: Clear to condition bilaterally Abdomen: Soft nontender no guarding rigidity Neurological: -Cranial nerves: Extraoccular muscles intact, pupils are reactive to light bilaterally. No facial asymmetry, no dysarthria, no facial sensory changes. To ngue protrudes midline. Normal SCM and trapezius muscle strength. -Upper extremities: Muscle strength is equal bilaterally and 5 out of 5 on biceps, triceps, and machine operator strength testing. There is decreased sensation to light touch along the left upper extremity. Slight pronator drift on the left. Finger to nose is improved on left. Biceps reflexes are 1+ bilaterally, brachioradialis reflexes are 1+ bilaterally. -Lower extremities: Right lower extremity muscle strength is 5 out of 5. Left lower extremity muscle strength is 4+ out of 5. There is decreased sensation to light touch in the left lower extremity. Patellar reflexes 1+ on the right and 2+ on the left. No clonus. Babinski negative. Results - Laboratory Findings CBC and BMP: 09/20/18 06:04 09/21/18 05:14 Abnormal lab findings: Abnormal lab results BUN 27 mg/dL (8-23) H 09/21/18 05:14 Est GFR (Non-Af Amer) 52 (> 60) L 09/21/18 05:14 Glucose 186 mg/dL (70-105) H 09/21/18 05:14 POC Glucose 259 mg/dL (70-99) H 09/20/18 23:03 Hemoglobin A1c 9.1 % (-5.6) H 09/20/18 06:04 AST 12 Units/L (13-39) L 09/19/18 19:14 Alkaline Phosphatase 115 Units/L (34-104) H 09/19/18 19:14 Triglycerides 164 mg/dL (< 150) H 09/20/18 06:04 LDL Cholesterol, Calc 123 mg/dL (0-99) H 09/20/18 06:04 VLDL Cholesterol, Calc 33 mg/dL (< 31) H 09/20/18 06:04 HDL Cholesterol 28 mg/dL (40-59) L 09/20/18 06:04 Cholesterol/HDL Ratio 6.6 (0-4.9) H 09/20/18 06:04 Consult Discharge Plan - Plan Referrals: NONE,PCP [Primary Care Provider] -
[2018-09-21] MEDS ORDERED: Insulin LISPRO 300 UNITS/3 ML VIAL SQ SCH (08:52)
[2018-09-21] MEDS: Isosorbide MONOnitrate (24 HR) 30 MG TAB.ER.24H PO SCH (12:06)
[2018-09-21] MEDS ORDERED: amLODIPine 5 MG TABLET PO SCH (14:00)
[2018-09-21] MEDS: Insulin DETEMIR 100 UNIT/ML X5UNITS SQ SCH ×2 (16:10→20:25)
--- NOTE | 2018-09-21 17:28 | Electrocardiograph Report ---
[place] [id number] Test Date: 2018-09-19 Pat Name: Yasmine Avendano Department: [id number] Room: 2NE34 Gender: F Director Consumer Affairs: : 1945 Requested By: Gabe Rutherford Order Number: [id number] Reading MD: Guy Carrero Measurements Intervals [place] Rate: 64 P: 60 SD: 131 QRS: 115 QRSD: 97 T: 95 QT: 409 QTc: 422 Interpretive Statements Sinus rhythm Right axis deviation Nonspecific T abnrm, anterolateral leads Electronically Signed On 09-21-2018 17:26:48 EST by Guy Carrero
[2018-09-21] MEDS ORDERED: Insulin DETEMIR 100 UNIT/ML X5UNITS SQ SCH (21:00)
[2018-09-22] MEDS: Insulin LISPRO 300 UNITS/3 ML VIAL SQ SCH ×2 (08:00→11:58)
[2018-09-22 08:45] LABS: Basophils # 0.1 K/mcL (0.0-0.2); Basophils % 0.7 %; Eosinophils # 0.2 K/mcL (0.0-0.6); Eosinophils % 2.4 %; Hematocrit 40.6 % (35.3-44.9); Hemoglobin 14.2 g/dL (11.5-15.4); Immature Granulocytes % 0.4 % (0-4); Lymphocytes # 3.7 K/mcL (0.6-4.6); Lymphocytes % 36.4 %; Mean Corpuscular Hemoglobin 32.9 pg (28.0-33.3); Mean Platelet Volume 10.4 fL (9.4-12.4); Monocytes # 0.4 K/mcL (0.0-1.3); Neutrophils # 5.7 K/mcL (1.6-8.9); Platelet Count 172 K/mcL (140-400); Red Blood Count 4.32 M/mcL (3.82-4.97); Red Cell Distribution Width 13.5 % (11.5-14.5); Segmented Neutrophils % 56.1 %
[2018-09-22 09:02] LABS: BUN/Creatinine Ratio 20 (6-26); Blood Urea Nitrogen 21 mg/dL (8-23); Calcium 9.8 mg/dL (8.6-10.3); Carbon Dioxide 27 mEq/L (23-29); Chloride 107 mEq/L (98-107); Glucose 96 mg/dL (70-105); Osmolality,Calculated 293 (280-300); Potassium 4.2 mEq/L (3.5-5.1); Sodium 140 mEq/L (136-145); eGFR For Non-African Americans 52 (> 60)
[2018-09-22] MEDS: Insulin DETEMIR 100 UNIT/ML X5UNITS SQ SCH (09:23)
[2018-09-22] MEDS: Apixaban 5 MG TABLET PO SCH (09:25)
[2018-09-22] MEDS: Nicotine 21 MG PATCH.TD24 TD SCH (09:25)
[2018-09-22] MEDS: Aspirin Enteric Coated 81 MG Tablet PO SCH (09:25)
[2018-09-22] MEDS: Isosorbide MONOnitrate (24 HR) 30 MG TAB.ER.24H PO SCH (09:29)
--- NOTE | 2018-09-22 09:58 | Discharge Summary ---
<Kali Tate - Last Filed: 09/22/18 14:40> - NOTES TO OUTPATIENT PROVIDER Notes to Outpatient Provider: Patient hospitalized due to acute CVA. Started 81mg ASA, 80mg Atorvastatin, and continue Eliquis 5mg bid for PE which would also serve as stroke preventative therapy. Blood pressure has been elevated, continue Imdur and restarted Lisinopril. Monitor blood pressure and follow up with neurology as an outpatient in 2-4 weeks. Follow-up with Hem/onc in clinic in a month after discharge for lab work. Date of Encounter: 09/22/18 Time of Encounter: 09:55 - Discharge Diagnosis (1) Cerebrovascular accident Priority: Primary Status: Acute Qualifiers: CVA mechanism: unspecified Qualified Code(s): I63.9 - Cerebral infarction, unspecified (2) Pulmonary embolus, right Priority: Secondary Status: Acute (3) Hypertension Priority: Secondary Status: Chronic Qualifiers: Hypertension type: essential hypertension Qualified Code(s): I10 - Essential (primary) hypertension (4) Coronary artery disease Priority: Secondary Status: Chronic Qualifiers: Coronary Disease-Associated Artery/Lesion type: bypass graft [place] vs. transplanted heart: [place] heart Associated angina: angina presence unspecified Qualified Code(s): I25.810 - Atherosclerosis of coronary artery bypass graft(s) without angina pectoris (5) Diabetes mellitus Priority: Secondary Status: Acute Qualifiers: Diabetes mellitus type: type 2 Diabetes mellitus extermination inspector insulin use: with extermination inspector use Diabetes mellitus complication status: with unspecified complications Qualified Code(s): E11.8 - Type 2 diabetes mellitus with unspecified complications; Z79.4 - extermination supervisor (current) use of insulin (6) Acute kidney injury Priority: Secondary Status: Resolved (7) Hypothyroidism Priority: Secondary Status: Chronic Qualifiers: Hypothyroidism type: unspecified Qualified Code(s): E03.9 - Hypothyroidism, unspecified (8) Tobacco dependence Priority: Secondary Status: Chronic Hospital course: Ms. Avendano is a 73 year old female with a past medical history significant for hypertension, hyperlipidemia, smoking dependence, diabetes mellitus, pulmonary embolism in the right main pulmonary artery distally extending into right middle and right lower lobe branches with pulmonary infarcts on CT angiogram from July 2018 who was started on Eliquis. She was hospitalized due to acute onset speech changes, left-sided upper and lower extremity weakness, and sensory changes. Patient was outside [facility] window upon arrival. CT and MRI findings confirmed an acute infarct of the right majo. Carotid Dopplers reveal b/l carotids that have non-stenotic plaque. Patient had echocardiogram performed in 08/09/18 which showed EF of 55-60%Symptoms improving but patient had residual left lower extremity weakness. Neurology recommended starting 81mg ASA, 80mg Atorvastatin, and Hem/onc recommended continue Eliquis 5mg bid for PE which would also serve as stroke preventative therapy. Blood pressure has been elevated, continue Imdur and her Lisinopril was restarted. Monitor blood pressure and follow up with neurology as an outpatient in 2-4 weeks. Follow-up with Hem/onc in clinic in a month after discharge for lab work. Discharge discussed with: patient, nurse, social work, case management, acquisition consultant - Time Spent with Patient Total time spent providing and/or coordinating discharge services: - Discharge Medications Prescriptions: Aspirin Enteric Coated [Aspirin EC] 81 mg PO DAILY #30 tablet. Atorvastatin [Lipitor] 80 mg PO HS #60 tablet Lisinopril [Zestril] 5 mg PO DAILY #30 tablet Nicotine Patch [Nicoderm] 21 mg TD DAILY #30 patch.td24 Home Medications: Oxycodone HCl [Oxaydo] 5 mg PO BID PRN 10/19/15 [History] Isosorbide MONOnitrate (24 HR) [Imdur] 30 mg PO DAILY #30 04/22/17 [Rx] Levothyroxine [Synthroid] 75 mcg PO 0630 08/09/18 [History] traZODone [TraZODone] 50 mg PO HS PRN 08/09/18 [History] Apixaban [Eliquis] 5 mg PO BID 08/11/18 [History] raNITIdine HCl [Ranitidine HCl] 150 mg PO BID 09/19/18 [History] Insulin NPH/REG 70/30 [HumuLIN 70/30 VIAL] 0 unit SQ BIDWM 09/20/18 [History] Melatonin [Melatin] 3 mg PO HS PRN 09/20/18 [History] Aspirin Enteric Coated [Aspirin EC] 81 mg PO DAILY #30 tablet. 09/22/18 [Rx] Atorvastatin [Lipitor] 80 mg PO HS #60 tablet 09/22/18 [Rx] Lisinopril [Zestril] 5 mg PO DAILY #30 tablet 09/22/18 [Rx] Nicotine Patch [Nicoderm] 21 mg TD DAILY #30 patch.td24 09/22/18 [Rx] Allergies/Adverse Reactions: Allergy/AdvReac Type Severity Reaction Status Date / Time fluticasone furoate Allergy Rash Verified 08/09/18 14:06 [From Breo Ellipta] morphine Allergy Difficulty Verified 08/09/18 14:06 Breathing vilanterol Allergy Rash Verified 08/09/18 14:06 [From Breo Ellipta] Date of admission: 09/20/18 12:47 Primary care physician: PCP NONE Consults: 09/19/18 20:42 Consult to Neurology [CONS] Stat Consulting Provider: [facility] Reason for Consult: left sided weakness Time Notified: 20:42 Call Completed: Yes 09/20/18 04:27 Consult to Occupational Therapy [CONS] Routine Comment: Evaluate, develop and implement POC Reason for Consult: Left-sided weakness, CVA Does patient have active BEDREST order?: No Is patient medically & hemodynamically stable?: Yes Consult to Physical Therapy [CONS] Routine Comment: Evaluate, develop and implement POC Reason for Consult: Left-sided weakness, CVA Does patient have active BEDREST order?: No Is patient medically & hemodynamically stable?: Yes 09/20/18 04:28 Consult to Speech Therapy [CONS] Routine Comment: Evaluate, develop and implement POC Reason for Consult: Slurred speech Call Completed: No 09/20/18 15:17 Consult to Adventure Guide [CONS] Routine Reason for SW Consult: non compliance on meds, may need assisstance setting up meds at home 09/21/18 17:13 Consult to Oncology Hematology [CONS] Routine Consulting Provider: Ladonna Bradford Reason for Consult: patient know to you, admitted with CVA. Dr. Bradford notified and at bedside. Call Completed: No Discharging clinician: Kali Tate Anticipated date of discharge: 09/22/18 - Constitutional Vitals: Temp Pulse Resp BP Pulse Ox 98.2 F 54 17 170/93 94 09/22/18 07:56 09/22/18 07:56 09/22/18 07:56 09/22/18 07:56 09/22/18 07:56 General appearance: Present: cooperative, pleasant, no acute distress, answers questions appropriately Exam: awake - Head Head exam: Present: atraumatic, normocephalic - Eye Eye exam: Present: PERRL, conjuntiva pink, sclera anicteric Pupils: Present: PERRL - ENT ENT exam: Present: mucous membranes moist, normal oropharynx - Neck Neck exam general surgery: Present: supple, trachea midline. Absent: lymphadenopathy - Respiratory Respiratory exam: Present: CTAB. Absent: accessory muscle use, rales, rhonchi, wheezes - Cardiovascular Cardiovascular exam: Present: RRR, +S1, +S2. Absent: diastolic murmur, gallop, rubs, systolic murmur - GI/Abdominal GI/Abdominal exam: Present: normal bowel sounds, soft, no peritoneal signs. A bsent: distended, tenderness - Extremities Exam Extremities exam: Present: warm, radial pulses palpable and symmetrical. Absent: calf tenderness, cyanotic, pedal edema Additional comments: Strength normal in both upper and lower extremities. - Neurological Exam Neurological exam: Present: CN II-XII intact, oriented X3, strengths equal and symetr throughout. Absent: no focal deficits (mild right-sided facial droop, speech improved), pronater drift, facial droop, speech deficit - Psychiatric Psychiatric exam: Present: normal affect, normal mood - Skin Skin exam: Present: dry, intact - Patient Status Disposition: Transfer SNF Condition: Fair Functional capacity at discharge: uses cane/walker Overall status at discharge: patient is progressing back to baseline - Discharge Instructions Instructions: Lisinopril (By mouth), Aspirin (By mouth), Nicotine (Absorbed through the skin), Atorvastatin (By mouth), Chest Pain (DC), Diabetes Mellitus Type 2 in Adults (DC), Chronic Hypertension (DC), Cigarette Smoking and Your Health, Warehouse Foreman (GEN) Follow Up With: NONE,PCP [Primary Care Provider] - - Diet and Activity Activity: ambulate only with your walker, as per physical therapy, increase activity as tolerated, resume usual activities as tolerated, other (stop smoking) Diet: diabetic diet <Lio Machado - Last Filed: 09/22/18 16:01> Date of Encounter: 09/22/18 - Discharge Diagnosis (1) [place] artery occlusion Priority: Primary Status: Acute (2) Coronary artery disease Status: Chronic Qualifiers: Coronary Disease-Associated Artery/Lesion type: bypass graft [place] vs. transplanted heart: [place] heart Associated angina: without angina Qualified Code(s): I25.810 - Atherosclerosis of coronary artery bypass graft(s) without angina pectoris (3) Diabetes mellitus Status: Acute Qualifiers: Diabetes mellitus type: type 2 Diabetes mellitus extermination inspector insulin use: with extermination inspector use Diabetes mellitus complication status: with hyperglycemia Qualified Code(s): E11.65 - Type 2 diabetes mellitus with hyperglycemia; Z79.4 - prison (current) use of insulin (4) Pulmonary embolus, right Status: Acute (5) Acute kidney injury Status: Resolved (6) Hypothyroidism Status: Chronic Qualifiers: Hypothyroidism type: acquired Qualified Code(s): E03.9 - Hypothyroidism, unspecified (7) Hypertension Status: Chronic Qualifiers: Hypertension type: essential hypertension Qualified Code(s): I10 - Essential (primary) hypertension (8) Cerebrovascular accident Status: Acute Qualifiers: CVA mechanism: unspecified Qualified Code(s): I63.9 - Cerebral infarction, unspecified (9) Tobacco dependence Status: Chronic (10) Tobacco abuse Priority: Secondary Status: Chronic Hospital course: Ms. Avendano is a 73 year old female - Time Spent with Patient Total time spent providing and/or coordinating discharge services: 38min Date of admission: 09/20/18 12:47 Primary care physician: PCP NONE Consults: 09/19/18 20:42 Consult to Neurology [CONS] Stat Consulting Provider: [facility] Reason for Consult: left sided weakness Time Notified: 20:42 Call Completed: Yes 09/20/18 04:27 Consult to Occupational Therapy [CONS] Routine Comment: Evaluate, develop and implement POC Reason for Consult: Left-sided weakness, CVA Does patient have active BEDREST order?: No Is patient medically & hemodynamically stable?: Yes Consult to Physical Therapy [CONS] Routine Comment: Evaluate, develop and implement POC Reason for Consult: Left-sided weakness, CVA Does patient have active BEDREST order?: No Is patient medically & hemodynamically stable?: Yes 09/20/18 04:28 Consult to Speech Therapy [CONS] Routine Comment: Evaluate, develop and implement POC Reason for Consult: Slurred speech Call Completed: No 09/20/18 15:17 Consult to Adventure Guide [CONS] Routine Reason for SW Consult: non compliance on meds, may need assisstance setting up meds at home 09/21/18 17:13 Consult to Oncology Hematology [CONS] Routine Consulting Provider: Ladonna Bradford Reason for Consult: patient know to you, admitted with CVA. Dr. Bradford notified and at bedside. Call Completed: No - Constitutional Vitals: Temp Pulse Resp BP Pulse Ox 97.8 F 75 18 119/73 100 09/22/18 10:54 09/22/18 10:54 09/22/18 10:54 09/22/18 10:54 09/22/18 10:54 - Attending Attestation I examined this patient and my medical decision-making was reviewed with the Resident Physician on 09/22/18. I agree with the documented findings, disposition and treatment plan as described except to the extent set forth below. Ms Avendano has been admitted for acute CVA and PE. She has been recommended acute rehab. She is now afebrile and ready for discharge on ASA and anticoagulation. Exam alert Comfortable Mucus membranes dry Heart not tachy. Regular No wheeze abd soft and nontender No rash No edema Plan D/C to SNF.
--- NOTE | 2018-09-22 10:28 | Physician Discharge Referral ---
ExtendedCare Referral Info Transfer To: F Provider in Charge: Dr. Lio Machado Provider in Charge after Transfer: PCP Institutional Level of Care: Skilled - Diagnosis (1) Cerebrovascular accident Priority: Primary Status: Acute (2) Pulmonary embolus, right Priority: Secondary Status: Acute (3) Hypertension Priority: Secondary Status: Chronic (4) Coronary artery disease Priority: Secondary Status: Chronic (5) Diabetes mellitus Priority: Secondary Status: Acute (6) Acute kidney injury Priority: Secondary Status: Resolved (7) Hypothyroidism Priority: Secondary Status: Chronic (8) Tobacco dependence Priority: Secondary Status: Chronic Prognosis: Good Aware of Diagnosis: Patient Aware of Prognosis: Patient - Transfer Medications Prescriptions: Aspirin Enteric Coated [Aspirin EC] 81 mg PO DAILY #30 tablet. Atorvastatin [Lipitor] 80 mg PO HS #60 tablet Lisinopril [Zestril] 5 mg PO DAILY #30 tablet Nicotine Patch [Nicoderm] 21 mg TD DAILY #30 patch.td24 Home Medications: Oxycodone HCl [Oxaydo] 5 mg PO BID PRN 10/19/15 [History] Isosorbide MONOnitrate (24 HR) [Imdur] 30 mg PO DAILY #30 04/22/17 [Rx] Levothyroxine [Synthroid] 75 mcg PO 0630 08/09/18 [History] traZODone [TraZODone] 50 mg PO HS PRN 08/09/18 [History] Apixaban [Eliquis] 5 mg PO BID 08/11/18 [History] raNITIdine HCl [Ranitidine HCl] 150 mg PO BID 09/19/18 [History] Insulin NPH/REG 70/30 [HumuLIN 70/30 VIAL] 0 unit SQ BIDWM 09/20/18 [History] Melatonin [Melatin] 3 mg PO HS PRN 09/20/18 [History] Aspirin Enteric Coated [Aspirin EC] 81 mg PO DAILY #30 tablet. 09/22/18 [Rx] Atorvastatin [Lipitor] 80 mg PO HS #60 tablet 09/22/18 [Rx] Lisinopril [Zestril] 5 mg PO DAILY #30 tablet 09/22/18 [Rx] Nicotine Patch [Nicoderm] 21 mg TD DAILY #30 patch.td24 09/22/18 [Rx] Allergies/Adverse Reactions: Allergy/AdvReac Type Severity Reaction Status Date / Time fluticasone furoate Allergy Rash Verified 08/09/18 14:06 [From Breo Ellipta] morphine Allergy Difficulty Verified 08/09/18 14:06 Breathing vilanterol Allergy Rash Verified 08/09/18 14:06 [From Breo Ellipta] - Respiratory Orders Other (Stop smoking) Smoking Cessation: Smoking cessation has been advised. For more information, call the [place] Tobacco Quit Line at 8-229-DPLV-NOW. - Ancillary Orders May use pressure relief devices daily prn - Advance Directives Code Status: Full Code - Mobility Orders Ambulate - Rehabiliation Orders Rehab Potential: Good Rehab Orders: ROM Exercises, Evaluation for Physical Therapy, Evaluation for Occupational Therapy, Evaluation for Speech Therapy - Treatments Skin tear care topically daily PRN per policy, May check for fecal impaction rectally daily PRN, Fleet enema rectally every other day PRN cleansing purposes - Diet Orders Cardiac (Diabetic diet) CERTIFICATION: I certify that the transfer of the above named patient to an Extended Care Facility is necessary for the continuing treatment of the diagnosis listed. The above information is true and accurate reflection of patient's current condition. Confidential - Redisclosure prohibited without a patient's written consent.
--- NOTE | 2018-09-22 12:24 | Oncology Inp Consult Note ---
Date of Encounter: 09/21/18 Time of Encounter: 16:00 Assessment and Plan (1) Pulmonary embolus, right Status: Acute Assessment and plan: Patient with acute pulmonary embolism, no known precipitating cause, on anti- coagulation was apparently not taking twice daily dosing, she was advised to take twice daily 5 mg. She will likely be maintained on longer term anticoagulation, likely to help with aspirin for her CVA and prevent recurrent venous thrombosis. Risk benefits of continuing anti-coagulation and follow-up in clinic reviewed with patient and her friend. CVA risk factors hypertension diabetes mellitus, hyperlipidemia, smoking history. She will follow-up with neurology. She is being discharged for rehabilitation facility. She will follow-up with me in clinic in a month after discharge with lab works. - Data of Consult Requesting Physician: Lio Machado DO Primary Care Provider: PCP NONE - Consult Narrative Reason for consult: History of thrombosis, pulmonary embolism patient missed outpatient appt History of present illness: Chief complaint pulmonary embolism History of present illness This is a 73-year-old female with medical history significant for hypertension, hyperlipidemia, smoking history, diabetes mellitus, pulmonary embolism, right main pulmonary artery distally extending into right middle and right lower lobe branches with pulmonary infarcts in CT angiogram from July 2018 on Eliquis at home, was referred to hematology for anti-coag recommendations. Patient missed her outpatient appointment as she was hospitalized 09/20/2018 with left- sided weakness, CVA with MRI of the brain showing acute infarct within the right majo. She was seen and evaluated by neurology who recommended aspirin daily, continuing Eliquis and holding off on Plavix as long as she is on Eliquis due to bleeding risk. At the time of pulmonary embolism patient had echocardiogram that did not show any LV thrombus. Ejection fraction was normal. Patient appears to need help with feeding. She has occasional cough but denies any dysphagia. Her left upper extremity weakness is improving and her speech has improved. Nursing staff reported that patient at home was taking Eliquis,? Once daily. Past Med Surg Social Fam HX - Past Medical History Medical history: coronary artery disease, diabetes, fibromyalgia, GERD, hyperlipidemia, hypertension, malignancy, myocardial infarction, pulmonary embolus Psychiatric history: depression - Past Surgical History Surgical History: angioplasty/stent, cholecystectomy, coronary bypass (CABG), orthopedic, other, LE stent (s), LE vascular intervention Additional surgical history: NECK SURGERY. RIGHT EAR - Social History Smoking Status: Current every day smoker Packs per day: 1 pk Smokeless Tobacco Status: No Alcohol use: none Drug use: none - Family History Mother Living Status: Hx Family Cardiac Disorders: Yes ( defect) Father Living Status: Hx Family Cardiac Disorders: Yes Hx Family Cancer: Yes (colon) Hx Family Endocrine Disorder: Yes (DM) Medications and Allergies Oxycodone HCl [Oxaydo] 5 mg PO BID PRN 10/19/15 [History] Isosorbide MONOnitrate (24 HR) [Imdur] 30 mg PO DAILY #30 04/22/17 [Rx] Levothyroxine [Synthroid] 75 mcg PO 0630 08/09/18 [History] traZODone [TraZODone] 50 mg PO HS PRN 08/09/18 [History] Apixaban [Eliquis] 5 mg PO BID 08/11/18 [History] raNITIdine HCl [Ranitidine HCl] 150 mg PO BID 09/19/18 [History] Insulin NPH/REG 70/30 [HumuLIN 70/30 VIAL] 0 unit SQ BIDWM 09/20/18 [History] Melatonin [Melatin] 3 mg PO HS PRN 09/20/18 [History] Aspirin Enteric Coated [Aspirin EC] 81 mg PO DAILY #30 tablet.dr 09/22/18 [Rx] Atorvastatin [Lipitor] 80 mg PO HS #60 tablet 09/22/18 [Rx] Lisinopril [Zestril] 5 mg PO DAILY #30 tablet 09/22/18 [Rx] Nicotine Patch [Nicoderm] 21 mg TD DAILY #30 patch.td24 09/22/18 [Rx] Allergy/AdvReac Type Severity Reaction Status Date / Time fluticasone furoate Allergy Rash Verified 08/09/18 14:06 [From Breo Ellipta] morphine Allergy Difficulty Verified 08/09/18 14:06 Breathing vilanterol Allergy Rash Verified 08/09/18 14:06 [From Breo Ellipta] Constitutional: Present: weakness Nose, mouth and throat: Present: dry mouth Additional comments: speech changes Additional comments: no chest pain Additional comments: no respiratory distress Musculoskeletal: Present: muscle cramps, muscle weakness Neurological: Present: focal weakness Additional comments: normal affect Additional comments: no bleeding issues Oncology - Exam - Constitutional General appearance: no acute distress - Head Head exam: Present: atraumatic, normal inspection - Eye Eye exam: Present: sclera anicteric - ENT ENT exam: Present: mucous membranes dry - Neck Neck exam: Present: full ROM - Respiratory Respiratory exam: Present: CTAB Additional comments: saray air entry - Cardiovascular Cardiovascular exam: Present: +S1, +S2 - GI/Abdominal GI/Abdominal exam: Present: normal bowel sounds, soft Additional comments: non tender - Extremities Exam Extremities exam: Present: normal inspection Additional comments: no leg swelling - Neurological Exam Neurological exam: Present: alert, CN II-XII intact Additional comments: left wkness - Psychiatric Psychiatric exam: Present: normal affect Oncology Inpatient Results CTA, MRI brain echo as in HPI Consult Discharge Plan - Plan Instructions: Lisinopril (By mouth), Aspirin (By mouth), Nicotine (Absorbed through the skin), Atorvastatin (By mouth), Chest Pain (DC), Diabetes Mellitus Type 2 in Adults (DC), Chronic Hypertension (DC), Cigarette Smoking and Your Health, [employer]re Fielder (GEN) Referrals: NONE,PCP [Primary Care Provider] - Prescriptions: Aspirin Enteric Coated [Aspirin EC] 81 mg PO DAILY #30 tablet. Atorvastatin [Lipitor] 80 mg PO HS #60 tablet Lisinopril [Zestril] 5 mg PO DAILY #30 tablet Nicotine Patch [Nicoderm] 21 mg TD DAILY #30 patch.td24 Inpatient Charges Provider: Dr. Ezekiel Bradford Consult - Inpatient: [id number]
[2018-09-22 16:18] VITALS: BP 107/71
== END 2018-09-22 18:35 | DRG 65 ==
LOC: 2NENU 19:04 → EMEROOARM 19:04 → SUATTDRO 21:35 → 2NENU 22:24 → SUATTDRO 09-20 12:47
PROVIDERS: ADMIT Family Medicine; ATTEND Internal Medicine

== ENCOUNTER 2019-03-30 12:12 | Observation (INO) ==
[2019-03-30 12:50] LABS: Basophils % 0.1 %; Eosinophils % 0.1 %; Hematocrit 37.1 % (35.3-44.9); Hemoglobin 13.2 g/dL (11.5-15.4); Immature Granulocytes % 0.8 % (0-4); Lymphocytes # 0.9 K/mcL (0.6-4.6); Lymphocytes % 4.6 %; Mean Corpuscular HGB Conc 35.6 g/dL (31.6-35.5); Mean Corpuscular Volume 103.9 fL (83.0-100.0); Mean Platelet Volume 10.5 fL (9.4-12.4); Monocytes # 0.3 K/mcL (0.0-1.3); Monocytes % 1.3 %; Neutrophils # 18.7 K/mcL (1.6-8.9); Platelet Count 168 K/mcL (140-400); Red Blood Count 3.57 M/mcL (3.82-4.97); Segmented Neutrophils % 93.1 %; White Blood Count 20.1 K/mcL (4.3-11.1)
[2019-03-30 13:12] LABS: Albumin 3.9 g/dL (3.5-5.7); Albumin/Globulin Ratio 1.2 (1.1-2.2); Bilirubin,Direct 0.2 mg/dL (0.0-0.2); Bilirubin,Indirect 1.2 mg/dL (0.0-1.2); Bilirubin,Total 1.4 mg/dL (0.3-1.0); Globulin 3.2 g/dL (2.4-3.5); Magnesium 1.7 mg/dL (1.6-2.6); Potassium 4.5 mEq/L (3.5-5.1); Total Protein 7.1 g/dL (6.4-8.9); Troponin I 0.03 ng/mL (< 0.04)
[2019-03-30 14:01] LABS: Bilirubin,Urine Negative (Negative); Blood,Urine Small (Negative); Clarity,Urine Cloudy (Clear); Color,Urine Yellow (Yellow); Glucose,Urine (UA) 500 mg/dL (Normal); Ketones,Urine Negative (Negative); Leukocyte Esterase,Urine Negative (Negative); Nitrite,Urine Negative (Negative); Protein,Urine 100 mg/dL (Neg-Trace); Specific Gravity,Urine 1.019 (1.010-1.025); Urobilinogen,Urine Normal (Normal)
[2019-03-30 14:04] LABS: Bacteria,Urine None Seen per hpf (None-Few); Hyaline Casts,Urine Few per lpf (None-Few); RBC,Urine 0-3 per hpf (0-3); Squamous Epithelial Cell,Urine Many per lpf (None-Few); WBC,Urine 0-3 per hpf (0-3)
[2019-03-30] MEDS ORDERED: traZODone 50 MG TABLET PO PRN (15:51)
[2019-03-30] MEDS ORDERED: Melatonin 3 MG TABLET PO PRN (15:51)
[2019-03-30] MEDS ORDERED: *HR* OxyCODONE Immed Rel 5 MG TABLET PO PRN (15:51)
[2019-03-30] MEDS ORDERED: D5% in Water 1,000 ML IVC PRN (15:56)
[2019-03-30] MEDS ORDERED: *HR* Dextrose 50 % in Water (Syg) 50 ML SYRINGE IVP PRN (15:56)
[2019-03-30] MEDS ORDERED: Dextrose Gel 15 GM/37.5 ML TUBE PO PRN ×2 (15:56)
[2019-03-30] MEDS ORDERED: Naloxone 0.4 MG/ML INJ IVP PRN (15:58)
[2019-03-30] MEDS ORDERED: *HR* Promethazine 25 MG/ML VIAL IVP PRN (15:58)
[2019-03-30] MEDS ORDERED: Ondansetron 4 MG/2 ML VIAL IVP PRN (15:58)
[2019-03-30] MEDS: cefTRIAXone 2,000 MG in 0.9 % Sodium Chloride Mini Bag 100 ML IVPB SCH (18:07)
[2019-03-30] MEDS: Insulin LISPRO 300 UNITS/3 ML VIAL SQ SCH ×2 (18:59→21:01)
[2019-03-30] MEDS: Apixaban 5 MG TABLET PO SCH (21:01)
[2019-03-30] MEDS: Chlorhexidine Rinse 15 ML MOUTHWASH MM SCH (21:01)
[2019-03-30] MEDS: Famotidine 20 MG TABLET PO SCH (21:01)
[2019-03-30] MEDS: Miconazole 2% ointment 141 APPL/141 GM TUBE TP SCH (21:01)
[2019-03-31 02:02] LABS: Basophils % 0.2 %; Eosinophils # 0.4 K/mcL (0.0-0.6); Eosinophils % 2.7 %; Hematocrit 34.1 % (35.3-44.9); Hemoglobin 12.3 g/dL (11.5-15.4); Immature Granulocytes % 0.4 % (0-4); Lymphocytes # 1.9 K/mcL (0.6-4.6); Lymphocytes % 12.5 %; Mean Corpuscular HGB Conc 36.1 g/dL (31.6-35.5); Mean Corpuscular Hemoglobin 37.6 pg (28.0-33.3); Mean Corpuscular Volume 104.3 fL (83.0-100.0); Mean Platelet Volume 10.8 fL (9.4-12.4); Monocytes # 0.3 K/mcL (0.0-1.3); Monocytes % 1.9 %; Neutrophils # 12.7 K/mcL (1.6-8.9); Platelet Count 175 K/mcL (140-400); Red Blood Count 3.27 M/mcL (3.82-4.97); Red Cell Distribution Width 12.9 % (11.5-14.5); Segmented Neutrophils % 82.3 %; White Blood Count 15.4 K/mcL (4.3-11.1)
[2019-03-31 02:16] LABS: Calcium 8.9 mg/dL (8.6-10.3); Chol/HDL Ratio 2.8 (0-4.9); Phosphorous 2.3 mg/dL (2.7-4.5)
[2019-03-31 02:32] LABS: Thyroid Stimulating Hormone 12.167 mcIU/mL (0.340-5.600)
[2019-03-31 03:01] LABS: Vitamin B12 60 pg/mL (250-1100); Vitamin D 25 Hydroxy 12 ng/mL (30-80)
[2019-03-31] MEDS ORDERED: Cyanocobalamin (B-12) 1,000 MCG/ML VIAL IM ONE (07:18)
[2019-03-31 08:25] LABS: Estimated Average Glucose 177 mg/dl
[2019-03-31] MEDS: Famotidine 20 MG TABLET PO SCH ×2 (08:32→20:43)
[2019-03-31] MEDS: Vitamin B Complex/Vit C/Vit E 1 EACH TABLET PO SCH (08:32)
[2019-03-31] MEDS: Cholecalciferol (D-3) 1,000 UNIT (25MCG) TABLET PO SCH (08:32)
[2019-03-31] MEDS: Isosorbide MONOnitrate (24 HR) 30 MG TAB.ER.24H PO SCH (08:32)
[2019-03-31] MEDS: Aspirin Enteric Coated 81 MG Tablet PO SCH (08:33)
[2019-03-31] MEDS: Apixaban 5 MG TABLET PO SCH ×2 (08:33→20:43)
[2019-03-31] MEDS: Nicotine 21 MG PATCH.TD24 TD SCH (08:35)
[2019-03-31] MEDS: Miconazole 2% ointment 141 APPL/141 GM TUBE TP SCH ×3 (08:36→20:42)
[2019-03-31] MEDS: Insulin LISPRO 300 UNITS/3 ML VIAL SQ SCH ×4 (08:38→20:44)
[2019-03-31] MEDS: Chlorhexidine Rinse 15 ML MOUTHWASH MM SCH ×2 (08:38→20:42)
[2019-03-31] MEDS: cefTRIAXone 2,000 MG in 0.9 % Sodium Chloride Mini Bag 100 ML IVPB SCH (16:21)
[2019-04-01 05:57] LABS: Basophils % 0.1 %; Eosinophils # 0.4 K/mcL (0.0-0.6); Eosinophils % 5.2 %; Hematocrit 30.5 % (35.3-44.9); Immature Granulocytes % 0.4 % (0-4); Lymphocytes % 30.4 %; Mean Corpuscular HGB Conc 34.8 g/dL (31.6-35.5); Mean Corpuscular Hemoglobin 36.7 pg (28.0-33.3); Mean Corpuscular Volume 105.5 fL (83.0-100.0); Mean Platelet Volume 11.1 fL (9.4-12.4); Monocytes # 0.3 K/mcL (0.0-1.3); Monocytes % 4.7 %; Platelet Count 149 K/mcL (140-400); Red Blood Count 2.89 M/mcL (3.82-4.97); Segmented Neutrophils % 59.2 %
[2019-04-01 06:00] LABS: Hemoglobin 10.6 g/dL (11.5-15.4); White Blood Count 6.7 K/mcL (4.3-11.1)
[2019-04-01 06:20] LABS: Calcium 8.6 mg/dL (8.6-10.3); Potassium 4.1 mEq/L (3.5-5.1)
[2019-04-01] MEDS: Famotidine 20 MG TABLET PO SCH ×2 (08:02→20:18)
[2019-04-01] MEDS: Apixaban 5 MG TABLET PO SCH ×2 (08:03→20:18)
[2019-04-01] MEDS: Isosorbide MONOnitrate (24 HR) 30 MG TAB.ER.24H PO SCH (08:04)
[2019-04-01] MEDS: Vitamin B Complex/Vit C/Vit E 1 EACH TABLET PO SCH (08:04)
[2019-04-01] MEDS: Cyanocobalamin (B-12) 1,000 MCG TABLET PO SCH (08:04)
[2019-04-01] MEDS: Cholecalciferol (D-3) 1,000 UNIT (25MCG) TABLET PO SCH (08:04)
[2019-04-01] MEDS: Aspirin Enteric Coated 81 MG Tablet PO SCH (08:04)
[2019-04-01] MEDS: Nicotine 21 MG PATCH.TD24 TD SCH (08:05)
[2019-04-01] MEDS: Miconazole 2% ointment 141 APPL/141 GM TUBE TP SCH ×3 (08:06→20:17)
[2019-04-01] MEDS: Insulin LISPRO 300 UNITS/3 ML VIAL SQ SCH ×4 (08:07→20:22)
[2019-04-01] MEDS: Chlorhexidine Rinse 15 ML MOUTHWASH MM SCH ×2 (08:07→20:19)
[2019-04-01] MEDS: cefTRIAXone 2,000 MG in 0.9 % Sodium Chloride Mini Bag 100 ML IVPB SCH (16:08)
[2019-04-02 01:55] LABS: Basophils % 0.3 %; Eosinophils # 0.4 K/mcL (0.0-0.6); Eosinophils % 6.4 %; Hematocrit 30.2 % (35.3-44.9); Hemoglobin 10.7 g/dL (11.5-15.4); Immature Granulocytes % 0.5 % (0-4); Lymphocytes # 2.5 K/mcL (0.6-4.6); Lymphocytes % 39.5 %; Mean Corpuscular HGB Conc 35.4 g/dL (31.6-35.5); Mean Corpuscular Hemoglobin 36.9 pg (28.0-33.3); Mean Corpuscular Volume 104.1 fL (83.0-100.0); Mean Platelet Volume 10.5 fL (9.4-12.4); Monocytes # 0.3 K/mcL (0.0-1.3); Monocytes % 4.7 %; Neutrophils # 3.1 K/mcL (1.6-8.9); Platelet Count 151 K/mcL (140-400); Red Cell Distribution Width 12.9 % (11.5-14.5); Segmented Neutrophils % 48.6 %; White Blood Count 6.4 K/mcL (4.3-11.1)
[2019-04-02 02:11] LABS: BUN/Creatinine Ratio 17 (6-26); Blood Urea Nitrogen 17 mg/dL (8-23); Calcium 8.8 mg/dL (8.6-10.3); Carbon Dioxide 27 mEq/L (23-29); Chloride 108 mEq/L (98-107); Glucose 145 mg/dL (70-105); Osmolality,Calculated 290 (280-300); Phosphorous 3.2 mg/dL (2.7-4.5); Potassium 4.2 mEq/L (3.5-5.1); Sodium 138 mEq/L (136-145); eGFR For African Americans > 60 (> 60); eGFR For Non-African Americans 54 (> 60)
[2019-04-02] MEDS: Nicotine 21 MG PATCH.TD24 TD SCH (10:30)
[2019-04-02] MEDS: Insulin LISPRO 300 UNITS/3 ML VIAL SQ SCH ×4 (11:15→20:07)
[2019-04-02] MEDS: Isosorbide MONOnitrate (24 HR) 30 MG TAB.ER.24H PO SCH (11:16)
[2019-04-02] MEDS: Miconazole 2% ointment 141 APPL/141 GM TUBE TP SCH ×3 (11:16→20:08)
[2019-04-02] MEDS: Chlorhexidine Rinse 15 ML MOUTHWASH MM SCH ×2 (11:16→20:08)
[2019-04-02] MEDS: Apixaban 5 MG TABLET PO SCH ×2 (11:16→20:08)
[2019-04-02] MEDS: Aspirin Enteric Coated 81 MG Tablet PO SCH (11:16)
[2019-04-02] MEDS: Cholecalciferol (D-3) 1,000 UNIT (25MCG) TABLET PO SCH (11:17)
[2019-04-02] MEDS: Vitamin B Complex/Vit C/Vit E 1 EACH TABLET PO SCH (11:17)
[2019-04-02] MEDS: Cyanocobalamin (B-12) 1,000 MCG TABLET PO SCH (11:17)
[2019-04-02] MEDS: Famotidine 20 MG TABLET PO SCH ×2 (11:17→20:08)
[2019-04-02] MEDS: cefTRIAXone 2,000 MG in 0.9 % Sodium Chloride Mini Bag 100 ML IVPB SCH (17:15)
[2019-04-03 05:51] LABS: Hematocrit 30.4 % (35.3-44.9); Hemoglobin 10.9 g/dL (11.5-15.4); Mean Corpuscular HGB Conc 35.9 g/dL (31.6-35.5); Mean Corpuscular Hemoglobin 37.3 pg (28.0-33.3); Mean Corpuscular Volume 104.1 fL (83.0-100.0); Mean Platelet Volume 10.4 fL (9.4-12.4); Platelet Count 151 K/mcL (140-400); Red Blood Count 2.92 M/mcL (3.82-4.97); Red Cell Distribution Width 12.9 % (11.5-14.5); White Blood Count 7.4 K/mcL (4.3-11.1)
[2019-04-03 06:15] LABS: Potassium 4.1 mEq/L (3.5-5.1)
[2019-04-03] MEDS: Famotidine 20 MG TABLET PO SCH ×2 (11:05→20:42)
[2019-04-03] MEDS: Chlorhexidine Rinse 15 ML MOUTHWASH MM SCH ×2 (11:05→20:42)
[2019-04-03] MEDS: Aspirin Enteric Coated 81 MG Tablet PO SCH (11:06)
[2019-04-03] MEDS: Cyanocobalamin (B-12) 1,000 MCG TABLET PO SCH (11:06)
[2019-04-03] MEDS: Cholecalciferol (D-3) 1,000 UNIT (25MCG) TABLET PO SCH (11:06)
[2019-04-03] MEDS: Vitamin B Complex/Vit C/Vit E 1 EACH TABLET PO SCH (11:06)
[2019-04-03] MEDS: Isosorbide MONOnitrate (24 HR) 30 MG TAB.ER.24H PO SCH (11:06)
[2019-04-03] MEDS: Apixaban 5 MG TABLET PO SCH ×2 (11:06→20:42)
[2019-04-03] MEDS: Insulin LISPRO 300 UNITS/3 ML VIAL SQ SCH ×4 (11:22→20:43)
[2019-04-03] MEDS: Miconazole 2% ointment 141 APPL/141 GM TUBE TP SCH ×3 (11:23→20:43)
[2019-04-03] MEDS: Nicotine 21 MG PATCH.TD24 TD SCH (12:38)
[2019-04-04 02:43] LABS: Basophils % 0.5 %; Eosinophils # 0.4 K/mcL (0.0-0.6); Eosinophils % 5.2 %; Hematocrit 29.8 % (35.3-44.9); Hemoglobin 10.5 g/dL (11.5-15.4); Immature Granulocytes % 1.1 % (0-4); Mean Corpuscular HGB Conc 35.2 g/dL (31.6-35.5); Mean Corpuscular Hemoglobin 36.6 pg (28.0-33.3); Mean Corpuscular Volume 103.8 fL (83.0-100.0); Mean Platelet Volume 10.7 fL (9.4-12.4); Monocytes # 0.4 K/mcL (0.0-1.3); Neutrophils # 3.4 K/mcL (1.6-8.9); Platelet Count 154 K/mcL (140-400); Red Blood Count 2.87 M/mcL (3.82-4.97); Red Cell Distribution Width 12.8 % (11.5-14.5); Segmented Neutrophils % 46.2 %; White Blood Count 7.3 K/mcL (4.3-11.1)
[2019-04-04 02:59] LABS: BUN/Creatinine Ratio 15 (6-26); Blood Urea Nitrogen 16 mg/dL (8-23); Carbon Dioxide 27 mEq/L (23-29); Chloride 104 mEq/L (98-107); Glucose 238 mg/dL (70-105); Osmolality,Calculated 295 (280-300); Potassium 3.9 mEq/L (3.5-5.1); Sodium 138 mEq/L (136-145); eGFR For African Americans > 60 (> 60); eGFR For Non-African Americans 52 (> 60)
[2019-04-04] MEDS: Famotidine 20 MG TABLET PO SCH (07:51)
[2019-04-04] MEDS: Vitamin B Complex/Vit C/Vit E 1 EACH TABLET PO SCH (07:52)
[2019-04-04] MEDS: Isosorbide MONOnitrate (24 HR) 30 MG TAB.ER.24H PO SCH (07:52)
[2019-04-04] MEDS: Cholecalciferol (D-3) 1,000 UNIT (25MCG) TABLET PO SCH (07:52)
[2019-04-04] MEDS: Apixaban 5 MG TABLET PO SCH (07:52)
[2019-04-04] MEDS: Aspirin Enteric Coated 81 MG Tablet PO SCH (07:52)
[2019-04-04] MEDS: Cyanocobalamin (B-12) 1,000 MCG TABLET PO SCH (07:52)
[2019-04-04] MEDS: Chlorhexidine Rinse 15 ML MOUTHWASH MM SCH (07:53)
[2019-04-04] MEDS: Miconazole 2% ointment 141 APPL/141 GM TUBE TP SCH ×2 (07:53→15:18)
[2019-04-04] MEDS: Nicotine 21 MG PATCH.TD24 TD SCH (07:53)
[2019-04-04] MEDS: Insulin LISPRO 300 UNITS/3 ML VIAL SQ SCH ×3 (07:54→17:23)
[2019-04-04 15:27] VITALS: BP 159/67
== END 2019-04-04 19:28 ==
LOC: EMEROOARM 12:12 → 3BNU 12:12
PROVIDERS: ADMIT Internal Medicine; ATTEND Internal Medicine

== ENCOUNTER 2020-03-14 13:55 | Inpatient (IN) ==
[2020-03-14] MEDS ORDERED: 0.9 % Sodium Chloride 1,000 ML IVC ONE ×2 (14:38→16:10)
[2020-03-14 15:03] LABS: Eosinophils % 0.6 %; Immature Granulocytes % 0.7 % (0-4); Red Cell Distribution Width 23.5 % (11.5-14.5)
[2020-03-14 15:05] LABS: Basophils # 0.1 K/mcL (0.0-0.2); Basophils % 0.4 %; Eosinophils # 0.1 K/mcL (0.0-0.6); Hematocrit 36.4 % (35.3-44.9); Hemoglobin 11.9 g/dL (11.5-15.4); Immature Platelets 7.1 % (1.1-6.1); Lymphocytes # 1.8 K/mcL (0.6-4.6); Lymphocytes % 11.8 %; Mean Corpuscular HGB Conc 32.7 g/dL (31.6-35.5); Mean Corpuscular Hemoglobin 28.7 pg (28.0-33.3); Mean Corpuscular Volume 87.7 fL (83.0-100.0); Monocytes # 1.2 K/mcL (0.0-1.3); Monocytes % 7.7 %; Neutrophils # 12.1 K/mcL (1.6-8.9); Platelet Count 144 K/mcL (140-400); Red Blood Count 4.15 M/mcL (3.82-4.97); Segmented Neutrophils % 78.8 %; White Blood Count 15.3 K/mcL (4.3-11.1)
[2020-03-14 15:09] LABS: INR 1.6; Prothrombin Time 18.2 Seconds (9.4-12.1)
[2020-03-14 15:31] LABS: Amorphous Sediment,Urine Few per hpf (None-Few); Bacteria,Urine Few per hpf (None-Few); Bilirubin,Urine Moderate (Negative); Blood,Urine Small (Negative); Clarity,Urine Turbid (Clear); Color,Urine Dark-Yellow (Yellow); Glucose,Urine (UA) 50 mg/dL (Normal); Ketones,Urine Negative (Negative); Leukocyte Esterase,Urine Negative (Negative); Nitrite,Urine Negative (Negative); PH,Urine 5.5 pH Units (5.0-8.0); Protein,Urine 70 mg/dL (Neg-Trace); Specific Gravity,Urine 1.015 (1.010-1.025); Squamous Epithelial Cell,Urine Few per hpf (None-Few); Urobilinogen,Urine Normal (Normal)
[2020-03-14 15:35] LABS: Anisocytosis 1+ (Not Present); Platelet Estimate Normal (Normal)
[2020-03-14 15:36] LABS: Large Platelets Present (Not Present); Reactive Lymphocytes Present (Not Present); Toxic Granulation Present (Not Present)
[2020-03-14 15:55] LABS: Acetaminophen < 10 mcg/mL (10-20); Salicylate < 2.5 mg/dL (15.0-30.0)
[2020-03-14 16:02] LABS: Albumin 2.7 g/dL (3.5-5.7); Albumin/Globulin Ratio 0.8 (1.1-2.2); Bilirubin,Indirect 13.9 mg/dL (0.0-1.0); Bilirubin,Total 23.9 mg/dL (0.3-1.0); Calcium 7.2 mg/dL (8.6-10.3); Globulin 3.6 g/dL (2.4-3.5); Potassium 4.2 mEq/L (3.5-5.1); Total Protein 6.3 g/dL (6.4-8.9)
[2020-03-14] MEDS ORDERED: Albumin 25% 25gram/100mL 25 GM/100 ML IV.SOLN IVPB ONE (16:48)
[2020-03-14] MEDS ORDERED: Acetylcysteine 8,800 MG in D5% in Water 250 ML IVC ONE (16:48)
[2020-03-14] MEDS ORDERED: Naloxone 0.4 MG/ML INJ IVP PRN (17:04)
[2020-03-14] MEDS ORDERED: Ondansetron 4 MG/2 ML VIAL IVP PRN (17:04)
[2020-03-14] MEDS ORDERED: *HR* OxyCODONE Immed Rel 5 MG TABLET PO PRN (17:04)
[2020-03-14] MEDS ORDERED: Dextrose Gel 15 GM/37.5 ML TUBE PO PRN ×2 (17:26)
[2020-03-14] MEDS ORDERED: *HR* Dextrose 50 % in Water (Vial) 50 ML VIAL IVP PRN (17:26)
[2020-03-14] MEDS ORDERED: D5% in Water 1,000 ML IVC PRN (17:26)
[2020-03-14] MEDS ORDERED: Acetylcysteine 2,900 MG in D5% in Water 500 ML IVC ONE (18:00)
[2020-03-14] MEDS: Ringers Solution, Lactated 1,000 ML IVC SCH (18:53)
[2020-03-14] MEDS: Insulin NPH/REG 70/30 100 UNIT/ML (x5UNIT) SQ SCH (19:12)
[2020-03-14] MEDS ORDERED: Acetylcysteine 5,900 MG in D5% in Water 1,000 ML IVC ONE (22:00)
[2020-03-14] MEDS: Apixaban 5 MG TABLET PO SCH (22:00)
[2020-03-15] MEDS ORDERED: *HR* Heparin 5,000 UNIT/ML VIAL SQ SCH
[2020-03-15 01:01] LABS: Hematocrit 32.3 % (35.3-44.9); Hemoglobin 10.4 g/dL (11.5-15.4); Immature Platelets 10.4 % (1.1-6.1); Mean Corpuscular HGB Conc 32.2 g/dL (31.6-35.5); Mean Corpuscular Hemoglobin 27.8 pg (28.0-33.3); Mean Corpuscular Volume 86.4 fL (83.0-100.0); Red Blood Count 3.74 M/mcL (3.82-4.97); White Blood Count 11.5 K/mcL (4.3-11.1)
[2020-03-15 01:02] LABS: VBG Ionized Calcium 0.84 mmol/L (1.15-1.35)
[2020-03-15 01:03] LABS: INR 2.2; Prothrombin Time 25.3 Seconds (9.4-12.1)
[2020-03-15 01:29] LABS: Platelet Count 94 K/mcL (140-400)
[2020-03-15 03:05] LABS: Albumin 2.4 g/dL (3.5-5.7); Albumin/Globulin Ratio 0.9 (1.1-2.2); Bilirubin,Direct 11.1 mg/dL (0.0-0.2); Bilirubin,Indirect 8.6 mg/dL (0.0-1.0); Bilirubin,Total 19.7 mg/dL (0.3-1.0); Calcium 6.5 mg/dL (8.6-10.3); Globulin 2.8 g/dL (2.4-3.5); Magnesium 2.1 mg/dL (1.6-2.6); Phosphorous 3.1 mg/dL (2.7-4.5); Potassium 3.4 mEq/L (3.5-5.1); Total Protein 5.2 g/dL (6.4-8.9)
[2020-03-15] MEDS: Ringers Solution, Lactated 1,000 ML IVC SCH (04:57)
[2020-03-15] MEDS ORDERED: Potassium Chloride 40 MEQ, Lidocaine 1% 2 ML in 0.9 % Sodium Chloride 500 ML IVPB ONE (07:23)
[2020-03-15] MEDS ORDERED: Calcium Gluconate 1gm/50mL 1 GM/50 ML BAG IVPB ONE (07:54)
[2020-03-15] MEDS: Apixaban 5 MG TABLET PO SCH ×2 (08:52→21:48)
[2020-03-15] MEDS: Metoprolol XL (24 HR) Succ 50 MG TAB.ER.24H PO SCH (08:53)
[2020-03-15] MEDS: Insulin NPH/REG 70/30 100 UNIT/ML (x5UNIT) SQ SCH ×2 (08:53→17:21)
[2020-03-15] MEDS: Aspirin Enteric Coated 81 MG Tablet PO SCH (08:53)
[2020-03-15] MEDS ORDERED: Albumin 25% 25gram/100mL 25 GM/100 ML IV.SOLN IVPB ONE ×2 (11:10→14:00)
[2020-03-15] MEDS ORDERED: Lactulose Oral Soln 20 GM/30 ML UDC PO SCH (12:00)
[2020-03-15] MEDS ORDERED: Melatonin 3 MG TABLET PO PRN (14:23)
[2020-03-15] MEDS: Lactulose Oral Soln 20 GM/30 ML UDC PO SCH (17:21)
[2020-03-16] MEDS: Lactulose Oral Soln 20 GM/30 ML UDC PO SCH ×3 (00:12→11:07)
[2020-03-16 00:52] LABS: INR 2.9; Prothrombin Time 33.5 Seconds (9.4-12.1)
[2020-03-16 00:53] LABS: Basophils # 0.1 K/mcL (0.0-0.2); Basophils % 0.3 %; Eosinophils % 0.1 %; Immature Granulocytes % 1.1 % (0-4); Immature Platelets 12.5 % (1.1-6.1); Lymphocytes # 1.8 K/mcL (0.6-4.6); Lymphocytes % 8.8 %; Mean Corpuscular HGB Conc 33.3 g/dL (31.6-35.5); Mean Corpuscular Hemoglobin 28.1 pg (28.0-33.3); Mean Corpuscular Volume 84.3 fL (83.0-100.0); Monocytes # 1.2 K/mcL (0.0-1.3); Neutrophils # 16.7 K/mcL (1.6-8.9); Nucleated Red Blood Cells 0.3 /100 WBC (0); Platelet Count 106 K/mcL (140-400); Red Blood Count 4.27 M/mcL (3.82-4.97); Red Cell Distribution Width 23.3 % (11.5-14.5); Segmented Neutrophils % 83.7 %
[2020-03-16 01:21] LABS: Albumin 2.7 g/dL (3.5-5.7); Albumin/Globulin Ratio 0.9 (1.1-2.2); Bilirubin,Direct 9.6 mg/dL (0.0-0.2); Bilirubin,Indirect 10.8 mg/dL (0.0-1.0); Bilirubin,Total 20.4 mg/dL (0.3-1.0); Calcium 6.9 mg/dL (8.6-10.3); Globulin 2.9 g/dL (2.4-3.5); Total Protein 5.6 g/dL (6.4-8.9)
[2020-03-16 01:28] LABS: Anisocytosis 1+ (Not Present); Large Platelets Present (Not Present); Platelet Estimate Slight Decrease (Normal); Toxic Granulation Present (Not Present)
[2020-03-16 05:58] LABS: Thyroid Stimulating Hormone 1.141 mcIU/mL (0.340-5.600)
[2020-03-16 09:32] LABS: Hematocrit 36.6 % (35.3-44.9); Hemoglobin 12.1 g/dL (11.5-15.4)
[2020-03-16] MEDS: Aspirin Enteric Coated 81 MG Tablet PO SCH (10:11)
[2020-03-16] MEDS: Apixaban 5 MG TABLET PO SCH (10:11)
[2020-03-16] MEDS: Metoprolol XL (24 HR) Succ 50 MG TAB.ER.24H PO SCH (10:11)
[2020-03-16] MEDS: Insulin NPH/REG 70/30 100 UNIT/ML (x5UNIT) SQ SCH (10:13)
[2020-03-16] MEDS ORDERED: Calcium Gluconate 1gm/50mL 1 GM/50 ML BAG IVPB ONE (10:24)
[2020-03-16] MEDS: Octreotide 400 MCG in 0.9 % Sodium Chloride 100 ML IVC SCH (10:28)
[2020-03-16] MEDS ORDERED: Sodium Bicarbonate 150 MEQ in D5% in Water 1,000 ML IVC SCH (10:30)
[2020-03-16 13:23] LABS: Bilirubin,Urine Moderate (Negative); Blood,Urine Large (Negative); Clarity,Urine Ex.Turbid (Clear); Color,Urine Dark-Orange (Yellow); Glucose,Urine (UA) Normal (Normal); Ketones,Urine 60 mg/dL (Negative); Leukocyte Esterase,Urine Large (Negative); Nitrite,Urine Negative (Negative); PH,Urine 7.5 pH Units (5.0-8.0); Protein,Urine >=600 mg/dL (Neg-Trace); Specific Gravity,Urine 1.022 (1.010-1.025); Urobilinogen,Urine Normal (Normal)
[2020-03-16 13:26] LABS: Bacteria,Urine Many per hpf (None-Few)
[2020-03-16 13:40] LABS: Sodium, Urine 104.5 mEq/L
[2020-03-16] MEDS ORDERED: Melatonin 3 MG TABLET GTUBE PRN (15:00)
[2020-03-16] MEDS ORDERED: cefTRIAXone 1,000 MG in Water for inj. (sterile) 10 ML IVP SCH (15:00)
[2020-03-16] MEDS: *HR* OxyCODONE Immed Rel 5 MG TABLET GTUBE PRN ×2 (15:33→20:42)
[2020-03-16] MEDS: Lactulose Oral Soln 20 GM/30 ML UDC GTUBE SCH (17:11)
[2020-03-17] MEDS ORDERED: Ondansetron 4 MG/2 ML VIAL IVP SCH
[2020-03-17 00:05] VITALS: BP 119/81
[2020-03-17] MEDS: Lactulose Oral Soln 20 GM/30 ML UDC GTUBE SCH (01:10)
[2020-03-17 02:20] LABS: Acinetobacter baumannii by PCR Not Detected (Not Detect); Enterococcus by PCR Not Detected (Not Detect); Staphylococcus aureus by PCR Not Detected (Not Detect); Staphylococcus by PCR Not Detected (Not Detect); Streptococcus agalactiae(B)PCR Not Detected (Not Detect); Streptococcus by PCR Not Detected (Not Detect); Streptococcus pneumoniae PCR Not Detected (Not Detect); Streptococcus pyogenes (A) PCR Not Detected (Not Detect); blaKPC Carbapenem-Resist Gene Not Detected (Not Detect)
[2020-03-17 02:21] LABS: Candida albicans by PCR Not Detected (Not Detect); Candida glabrata by PCR Not Detected (Not Detect); Candida krusei by PCR Not Detected (Not Detect); Candida parapsilosis by PCR Not Detected (Not Detect); Candida tropicalis by PCR Not Detected (Not Detect); Enterobacter cloacae Cmplx PCR Not Detected (Not Detect); Escherichia coli by PCR Not Detected (Not Detect); Klebsiella oxytoca by PCR Not Detected (Not Detect); Klebsiella pneumoniae by PCR Not Detected (Not Detect); Proteus by PCR DETECTED (Not Detect); Pseudomonas aeruginosa by PCR Not Detected (Not Detect); Serratia marcescens by PCR Not Detected (Not Detect)
[2020-03-17] MEDS: Octreotide 400 MCG in 0.9 % Sodium Chloride 100 ML IVC SCH (02:23)
[2020-03-17 02:39] LABS: Hematocrit 46.6 % (35.3-44.9); Mean Corpuscular Volume 87.4 fL (83.0-100.0); Platelet Count 108 K/mcL (140-400); Red Blood Count 5.33 M/mcL (3.82-4.97); Red Cell Distribution Width 24.3 % (11.5-14.5)
[2020-03-17 02:41] LABS: Hemoglobin 14.9 g/dL (11.5-15.4); White Blood Count 37.1 K/mcL (4.3-11.1)
[2020-03-17 02:52] LABS: Prothrombin Time 91.7 Seconds (9.4-12.1)
[2020-03-17 03:23] LABS: Albumin 2.6 g/dL (3.5-5.7); Albumin/Globulin Ratio 0.8 (1.1-2.2); Bilirubin,Direct 4.7 mg/dL (0.0-0.2); Bilirubin,Indirect 13.4 mg/dL (0.0-1.0); Bilirubin,Total 18.1 mg/dL (0.3-1.0); Calcium 6.8 mg/dL (8.6-10.3); Globulin 3.3 g/dL (2.4-3.5); Potassium 4.7 mEq/L (3.5-5.1); Total Protein 5.9 g/dL (6.4-8.9)
[2020-03-17] MEDS ORDERED: Aspirin 81 MG TAB.CHEW GTUBE SCH (09:00)
== END 2020-03-17 03:25 | disposition expired | DRG 441 ==
LOC: EMEROOARM 13:55 → 2ANU 17:53 → SUATTDRO 17:53 → 2ANU 18:33
PROVIDERS: ADMIT Internal Medicine; ATTEND Internal Medicine